=== PATIENT | male | born 1935 | race Caucasian/White ===

== ENCOUNTER 2016-10-23 20:02 | Inpatient (IN) | payer MEDICARE, BC ==
[~2016-10-23] VITALS: Ht 188 cm; Wt 106.7 kg
[~2016-10-23 20:02] MED LIST: ALLERGY RELIEF10 M1 PO; AMOXICILLIN 50500 MG PO; ATENOLOL; BIAXIN 500MG T500 MG PO; COLACE 100100 MG/CAP PO; COUMADIN5 MG PO; COZAAR100 MG PO; DIOVAN HCT 25 M1 TA1 PO; EFFEXOR-XR150 MG PO; FLAGYL500 MG PO; FLOMAX PO; GLUCOPHAGE500 MG/TAB PO; HCTZ 25MG TAB25 MG PO; IBUPROFEN200 M1 PO; LEVAQUIN 750MG750 M1 PO; LEVEMIR100 U/ML SQ; LEVOXYL0.125 MG PO; LORTAB 5/500 501 TAB PO; MEDROL 4MG DOSPA4 MG PO; METFORMIN500 MG PO; MIRALAX PA17 GM/Dose PO; NAPROXEN 3375 MG/TAB PO; NKDA; NORCO 325 MG-51 TAB PO; NORVASC 10MG10 MG PO; NOVLOG SQ; PACERONE200 MG PO; PHENERGAN W/CO120 ML PO; PRINIVIL20 MG PO; SEPTRA DS 8001 TAB PO; TUSS PO; TYLENOL 325MG325 MG PO; ULTRAM 50MG TAB50 MG PO; XARELTO20 MG PO; ZITHROMAX Z PA250 MG PO
[2016-10-23 20:42] LABS: BASO % 0.1 % (0.0-2.0); GRAN # 11.7 (1.4-6.5); HEMATOCRIT 39.6 % (42.0-52.0); HEMOGLOBIN 13.6 g/dl (13.5-18.0); LYMPH # 0.7 (1.2-3.4); LYMPH % 4.9 % (20.0-51.0); MEAN CELL VOLUME 83 fl (80.0-100.0); MEAN CORPUSCULAR HEMOGLOBIN 29 pg (27.0-31.0); MEAN CORPUSCULAR HGB CONC 34 g/dl (33.0-37.0); MEAN PLATELET VOLUME 10.1 fl (7.4-10.4); MONO # 0.7 (0.1-0.6); MONO % 5.5 % (1.7-9.3); PLATELET COUNT 252 K/mm3 (130-400); RED BLOOD COUNT 4.78 M/mm3 (4.20-5.60); REDCELL DISTRIBUTION WIDTH-CV 13.3 % (11.5-14.5); WHITE BLOOD COUNT 13.2 K/mm3 (4.8-10.8)
[2016-10-23 20:46] LABS: INR 1.8 (0.8-3.0); PROTHROMBIN TIME 20.8 SECONDS (9.7-12.8)
[2016-10-23 20:48] LABS: PARTIAL THROMBOPLASTIN TIME 31.8 SECONDS (26.0-37.0)
[2016-10-23 20:50] LABS: ADJUSTED CALCIUM 8.4 mg/dL (8.4-10.2); ALBUMIN 4.1 gm/dL (3.5-5.0); CALCIUM 8.5 mg/dL (8.4-10.2); CREATININE, serum 1.4 mg/dL (0.66-1.25); POTASSIUM 4.2 mmol/L (3.4-5.0)
[2016-10-23 21:01] LABS: TROPONIN-I 0.015 ng/mL (0.000-0.034)
[2016-10-23 21:05] LABS: PH 5 (5-8); SQUAMOUS EPITHELIAL 0-2 /hpf; URINE APPEARANCE Clear; URINE BACTERIA None Seen /hpf; URINE BILIRUBIN Negative (NEGATIVE); URINE BLOOD 1+ (NEGATIVE); URINE COLOR Straw; URINE GLUCOSE 3+ (NEGATIVE); URINE KETONE Negative (NEGATIVE); URINE UROBILINOGEN Negative (NEGATIVE)
[2016-10-23 21:17] LABS: ALLEN TEST YES; ARTERIAL BLD GAS O2 SATURATION 93.4 % (92-100); ARTERIAL BLD GAS TCO2 CT 22.8; ARTERIAL BLOOD GAS BASE EXCESS -1.1 (-2-2); ARTERIAL BLOOD GAS HCO3 21.8 meq/L (22-26); ARTERIAL BLOOD GAS PHT 7.46 C (7.35-7.45); ARTERIAL BLOOD GAS PO2 67.4 mmHg (80-100); ARTERIAL BLOOD GAS PO2T 67.4 (80-100); ARTERIAL BLOOD GAS pH 7.46 (7.35-7.45); ATS? YES; OXYHEMOGLOBIN 92.6 %
[2016-10-23 21:18] LABS: ALLENS TEST RESULT PASS
[2016-10-24] VITALS (667 sets, daily range): BP systolic 115–167; BP diastolic 63–93; PULSE 71–82; TEMP 97.5–98.5; O2SAT 81–100
[2016-10-24 00:40] LABS: MAGNESIUM 2.2 mg/dL (1.6-2.3); PHOSPHOROUS 3.8 mg/dL (2.5-4.5)
[2016-10-24 05:55] LABS: BASO % 0.1 % (0.0-2.0); GRAN # 9.7 (1.4-6.5); GRAN % 85.1 % (42.2-75.2); HEMATOCRIT 40.6 % (42.0-52.0); HEMOGLOBIN 13.6 g/dl (13.5-18.0); MEAN CELL VOLUME 85 fl (80.0-100.0); MEAN CORPUSCULAR HEMOGLOBIN 29 pg (27.0-31.0); MEAN CORPUSCULAR HGB CONC 34 g/dl (33.0-37.0); MEAN PLATELET VOLUME 10.4 fl (7.4-10.4); MONO # 0.6 (0.1-0.6); MONO % 5.4 % (1.7-9.3); PLATELET COUNT 196 K/mm3 (130-400); RED BLOOD COUNT 4.77 M/mm3 (4.20-5.60); REDCELL DISTRIBUTION WIDTH-CV 13.5 % (11.5-14.5); WHITE BLOOD COUNT 11.4 K/mm3 (4.8-10.8)
[2016-10-24 06:21] LABS: CALCIUM 8.1 mg/dL (8.4-10.2); CREATININE, serum 1.18 mg/dL (0.66-1.25); MAGNESIUM 2.1 mg/dL (1.6-2.3); PHOSPHOROUS 3.4 mg/dL (2.5-4.5); POTASSIUM 3.3 mmol/L (3.4-5.0)
[2016-10-24] MEDS ORDERED: GLUCOTROL 5M5 MG/TAB (08:46)
[2016-10-25] VITALS (7 sets, daily range): BP systolic 141–167; BP diastolic 64–825; PULSE 71–82; TEMP 97.5–98.6
[2016-10-25] MEDS ORDERED: OMNICEF 300MG300 MG PO (15:37)
[2016-10-25] MEDS ORDERED: ZITHROMAX Z PA250 MG PO (15:40)
[2016-10-25] MEDS ORDERED: LEVEMIR FLEX100 U/ML SQ (15:41)
[2016-10-25] MEDS ORDERED: IPRATROPIUM BROM3 M1 IH (15:42)
[2016-10-25] MEDS ORDERED: GLUCOTROL 5M5 MG/TAB PO (15:49)
[2016-10-26 02:37] VITALS: BP 151/64; PULSE 67; TEMP 98.2
[2016-10-26 07:20] LABS: HEMATOCRIT 38.3 % (42.0-52.0); HEMOGLOBIN 12.8 g/dl (13.5-18.0); MEAN CELL VOLUME 86 fl (80.0-100.0); MEAN CORPUSCULAR HEMOGLOBIN 29 pg (27.0-31.0); MEAN CORPUSCULAR HGB CONC 33 g/dl (33.0-37.0); MEAN PLATELET VOLUME 10.2 fl (7.4-10.4); PLATELET COUNT 172 K/mm3 (130-400); RED BLOOD COUNT 4.46 M/mm3 (4.20-5.60); REDCELL DISTRIBUTION WIDTH-CV 13.9 % (11.5-14.5); WHITE BLOOD COUNT 5.8 K/mm3 (4.8-10.8)
[2016-10-26 07:35] LABS: CALCIUM 7.8 mg/dL (8.4-10.2); CREATININE, serum 0.87 mg/dL (0.66-1.25); POTASSIUM 3.4 mmol/L (3.4-5.0)
[2016-10-26 07:56] VITALS: BP 151/81; PULSE 74; TEMP 97.9
== END 2016-10-26 11:45 | disposition home or self-care (01) | DRG 193 ==
LOC: COL.ER 20:02 → MEDICAL 22:16 → IMCU 22:16 → MEDICAL 10-24 16:30
PROVIDERS: Emergency Medicine; Internal Medicine
DX: J18.9 Pneumonia, unspecified organism (principal); E11.00 Type 2 diabetes mellitus with hyperosmolarity without nonketotic hyperglycemic-hyperosmolar coma (NKHHC); E87.3 Alkalosis; E87.1 Hypo-osmolality and hyponatremia; I12.9 Hypertensive chronic kidney disease with stage 1 through stage 4 chronic kidney disease, or unspecified chronic kidney disease; E11.22 Type 2 diabetes mellitus with diabetic chronic kidney disease; E11.65 Type 2 diabetes mellitus with hyperglycemia; N18.2 Chronic kidney disease, stage 2 (mild); I48.91 Unspecified atrial fibrillation; N40.1 Benign prostatic hyperplasia with lower urinary tract symptoms; N39.498 Other specified urinary incontinence
CPT/HCPCS: 99222-AI; 99233-AI; J0456; J0696; J1815; J7030; J7050

== ENCOUNTER 2017-05-28 10:06 | Inpatient (IN) | payer MEDICARE, BC ==
[~2017-05-28] VITALS: Ht 188 cm; Wt 110.5 kg
[~2017-05-28 10:06] MED LIST changes: +GLUCOTROL 5M5 MG/TAB; +GLUCOTROL 5M5 MG/TAB PO; +IPRATROPIUM BROM3 M1 IH; +LEVEMIR FLEX100 U/ML SQ; +OMNICEF 300MG300 MG PO
[2017-05-28 10:50] LABS: BASO % 0.5 % (0.0-2.0); EOS # 0.1 (0.0-0.7); EOS % 1.7 % (0-4.0); HEMATOCRIT 40.5 % (42.0-52.0); HEMOGLOBIN 13.7 g/dl (13.5-18.0); LYMPH # 0.8 (1.2-3.4); LYMPH % 10.7 % (20.0-51.0); MEAN CELL VOLUME 87 fl (80.0-100.0); MEAN CORPUSCULAR HEMOGLOBIN 30 pg (27.0-31.0); MEAN CORPUSCULAR HGB CONC 34 g/dl (33.0-37.0); MEAN PLATELET VOLUME 9.7 fl (7.4-10.4); MONO # 0.8 (0.1-0.6); MONO % 10.7 % (1.7-9.3); PLATELET COUNT 239 K/mm3 (130-400); RED BLOOD COUNT 4.65 M/mm3 (4.20-5.60); REDCELL DISTRIBUTION WIDTH-CV 13.5 % (11.5-14.5)
[2017-05-28] MEDS ORDERED: CEFTIN500 MG PO (10:55)
[2017-05-28] MEDS ORDERED: PROMETHAZINE V473 M2 PO (10:57)
[2017-05-28] MEDS ORDERED: TESSALON P100 MG/CAP PO (10:57)
[2017-05-28 10:58] LABS: ALBUMIN 3.7 gm/dL (3.5-5.0); CALCIUM 8.3 mg/dL (8.4-10.2); CREATININE, serum 1.33 mg/dL (0.66-1.25); POTASSIUM 3.5 mmol/L (3.4-5.0)
[2017-05-28 11:04] LABS: INFLUENZA A NEGATIVE; INFLUENZA B NEGATIVE
[2017-05-28 11:11] LABS: C-REACTIVE PROTEIN 14.5 mg/dL (0.0-0.9)
[2017-05-28 12:31] VITALS: BP 106/72; PULSE 102; TEMP 97.6
[2017-05-28 15:39] VITALS: BP 133/81; PULSE 93; TEMP 98.5
[2017-05-28 19:27] VITALS: BP 123/90; PULSE 114; TEMP 97.6
[2017-05-29 00:11] VITALS: BP 130/84; PULSE 109; TEMP 97.5
[2017-05-29 03:23] VITALS: BP 151/93; PULSE 96; TEMP 97.3
[2017-05-29 07:22] LABS: HEMATOCRIT 38.6 % (42.0-52.0); MEAN CELL VOLUME 88 fl (80.0-100.0); MEAN CORPUSCULAR HEMOGLOBIN 30 pg (27.0-31.0); MEAN CORPUSCULAR HGB CONC 34 g/dl (33.0-37.0); PLATELET COUNT 225 K/mm3 (130-400); RED BLOOD COUNT 4.41 M/mm3 (4.20-5.60); REDCELL DISTRIBUTION WIDTH-CV 13.2 % (11.5-14.5)
[2017-05-29 07:32] LABS: CALCIUM 8.4 mg/dL (8.4-10.2); CREATININE, serum 1.22 mg/dL (0.66-1.25); POTASSIUM 3.4 mmol/L (3.4-5.0)
[2017-05-29 08:11] VITALS: BP 153/104; PULSE 116; TEMP 98.3
[2017-05-29 08:30] LABS: BAND 8 % (0-10); LYMPHOCYTE 2 % (20.0-51.0); NEUTROPHILS 89 % (42.0-75.2); PLATELET ESTIMATE NORMAL (NORMAL)
[2017-05-29 11:42] VITALS: BP 138/81; PULSE 106; TEMP 97.5
[2017-05-29 16:17] VITALS: BP 143/90; PULSE 101; TEMP 98.5
[2017-05-29 19:13] VITALS: BP 127/87; PULSE 87; TEMP 98.5
[2017-05-30 00:32] VITALS: BP 143/89; PULSE 99; TEMP 98
[2017-05-30 03:44] VITALS: BP 141/90; PULSE 115; TEMP 98.2
[2017-05-30 08:33] VITALS: BP 145/97; PULSE 101; TEMP 97.8
[2017-05-30] MEDS ORDERED: LOPRESSOR 550 MG/TAB PO (09:16)
[2017-05-30] MEDS ORDERED: LEVAQUIN 5500 MG/TA1 PO (09:17)
[2017-05-30 11:39] VITALS: BP 156/72; PULSE 81; TEMP 97.7
== END 2017-05-30 15:55 | disposition home or self-care (01) | DRG 195 ==
LOC: COL.ER 10:06 → MEDICAL 11:29
PROVIDERS: Internal Medicine; Physician Assistant
DX: J18.9 Pneumonia, unspecified organism (principal); J20.9 Acute bronchitis, unspecified; I12.9 Hypertensive chronic kidney disease with stage 1 through stage 4 chronic kidney disease, or unspecified chronic kidney disease; E11.22 Type 2 diabetes mellitus with diabetic chronic kidney disease; N18.9 Chronic kidney disease, unspecified; I48.2 Chronic atrial fibrillation
CPT/HCPCS: 99222-AI; 99232-AI; 99239; J0456; J0696; J1815; J2920; J7030; J7050

== ENCOUNTER 2018-09-28 01:50 | Inpatient (IN) | payer MEDICARE, BC ==
[2018-09-28] VITALS (52 sets, daily range): BP systolic 128–174; BP diastolic 59–104; PULSE 57–83; TEMP 97.6–98.5; O2SAT 94–100
[~2018-09-28] VITALS: Ht 188 cm; Wt 112.9 kg
[~2018-09-28 01:50] MED LIST changes: +CEFTIN500 MG PO; +LEVAQUIN 5500 MG/TA1 PO; +LOPRESSOR 550 MG/TAB PO; +PROMETHAZINE V473 M2 PO; +TESSALON P100 MG/CAP PO
[2018-09-28 02:07] LABS: BASO # 0.1 (0.0-0.2); BASO % 0.9 % (0.0-2.0); EOS # 0.4 (0.0-0.7); GRAN # 6.2 (1.4-6.5); GRAN % 68.5 % (42.2-75.2); HEMATOCRIT 47.2 % (42.0-52.0); HEMOGLOBIN 15.9 g/dl (13.5-18.0); LYMPH # 1.8 (1.2-3.4); LYMPH % 19.5 % (20.0-51.0); MEAN CELL VOLUME 90 fl (80.0-100.0); MEAN CORPUSCULAR HEMOGLOBIN 30 pg (27.0-31.0); MEAN CORPUSCULAR HGB CONC 34 g/dl (33.0-37.0); MEAN PLATELET VOLUME 9.8 fl (7.4-10.4); MONO # 0.6 (0.1-0.6); MONO % 6.9 % (1.7-9.3); PLATELET COUNT 232 K/mm3 (130-400); RED BLOOD COUNT 5.26 M/mm3 (4.20-5.60); REDCELL DISTRIBUTION WIDTH-CV 12.9 % (11.5-14.5)
[2018-09-28 02:12] LABS: PROTHROMBIN TIME 10.8 SECONDS (9.7-12.8)
[2018-09-28 02:14] LABS: PARTIAL THROMBOPLASTIN TIME 31.6 SECONDS (26.0-37.0)
[2018-09-28] MEDS ORDERED: GLUCOTROL10 MG PO (02:28)
[2018-09-28] MEDS ORDERED: CELEBREX 200MG200 MG PO (02:30)
[2018-09-28 02:42] LABS: ALBUMIN 4.1 gm/dL (3.5-5.0); BILIRUBIN,TOTAL 0.5 mg/dL (0.0-1.0); CREATININE, serum 1.39 (0.66-1.25); POTASSIUM 4.4 mmol/L (3.4-5.0); TOTAL PROTEIN 7.6 gm/dL (6.4-8.2)
[2018-09-28 03:52] LABS: TROPONIN-I 0.125 ng/mL (0.000-0.035)
[2018-09-28 05:18] LABS: MAGNESIUM 1.9 mg/dL (1.6-2.3)
[2018-09-28] MEDS ORDERED: GLUCOPHAGE XR500 M1 PO (05:26)
--- NOTE | 2018-09-28 05:30 | NUR ---
Pt arrived to room 351, transferred per stretcher by ED. Pt awake, a&o, cooperative c cares. Oriented to room, unit policies et current POC. Questions invited et answered, pt verbalizes understanding. Denies needs at this time. Heparin gtt infusing per orders. Call light in reach, will monitor.
[2018-09-28 05:46] LABS: THYROID STIMULATING HORMONE 8.78 uIU/mL (0.465-4.680)
[2018-09-28 06:03] LABS: CHOLESTEROL RISK RATIO 4.3
[2018-09-28 06:30] LABS: TROPONIN-I 3 HR POST INITIAL 0.345 ng/mL (0.000-0.034)
--- NOTE | 2018-09-28 07:48 | NUR ---
Assessment completed, alert/oriented, vital signs stable, denies any further chest pAin or discomfort, heart RRR/distal pulses are palpable, lungS CTA/ denies any SOA or resp.difficulty, 0545 troponin was 0.345/ notified, patient is on Heparin gtt per protocol, we have kept him NPO, he is resting quietly an denies needs, will continue to monitor
--- NOTE | 2018-09-28 10:08 | NUR ---
JEANE met with the patient to discuss discharge plan. The patient lives alone in [place]. He states that his son, Jose, lives in town. He reports independence with ADLs and has a cane. The patient reports that he has not been able to keep his medications organized and would be interested in getting home health services set back up. JEANE presented the patient with Medicare.gov's list of home health services that serve [place]. The patient reports he had [facility] in the past and chose them again. JEANE contacted and provided Jean from [facility] with the referral. Jean reports that they can accept the patient back for services. SW to continue to follow.
--- NOTE | 2018-09-28 11:58 | NUR ---
HepXa level was 1.86, per protocol will hold gtt for 2 hours, recheck PTT and HepXa level at 1300, once HepXa level is below 1.0/ restart gtt and decreased 300 units/hr from previous rate (rate once we restart will be 17 ml/hr)
[2018-09-28 13:52] LABS: PARTIAL THROMBOPLASTIN TIME 88.4 SECONDS (26.0-37.0)
--- NOTE | 2018-09-28 14:05 | NUR ---
HepXa was 1.0, restarting gtt at this time @ 17 ml/hr, next Hepxa at 2000
--- NOTE | 2018-09-28 14:46 | NUR ---
Initial visit; Patient and family thanked Lehr Operator for looking in in him and offering encouragement and God's blessings.
--- NOTE | 2018-09-28 19:20 | NUR ---
PT WENT DOWN TO SHIFT COORDINATOR.
--- NOTE | 2018-09-28 19:47 | NUR ---
SEE MERGE FOR ALL MEDICATION ADMINISTRATION TIMES, RASS ASSESSMENT DURING AND POST PROCEDURE
--- NOTE | 2018-09-28 21:40 | NUR ---
RECEIVED REPORT FROM VOCATIONAL NURSE RN.
--- NOTE | 2018-09-28 21:50 | NUR ---
PATIENT ARRIVED ON UNIT AT THIS TIME VIA HOSPITAL BED.
--- NOTE | 2018-09-28 22:35 | NUR ---
PATIENTS DRESSING HAD A LITTLE MORE DRAINAGE WHEN CHECKED. KEPT THE FEMSTOP INFLATED AT 65.
--- NOTE | 2018-09-28 23:03 | NUR ---
CALLED DR. TEJEDA TO CLARIFY ORDERS. TOLD ME TO DC THE HEPARIN DRIP AND JUST LET THE NITRO INFUSE AT 2O MCG/MIN OVER NIGHT TO HOPEFULLY HELP DECREASE PATIENTS BLOOD PRESSURE.
[2018-09-29] VITALS (333 sets, daily range): BP systolic 100–160; BP diastolic 60–92; PULSE 56–77; TEMP 97.6–98.5; O2SAT 83–100
--- NOTE | 2018-09-29 01:30 | NUR ---
PATIENT HAD INCREASED BLEEDING SO INFLATED FEMSTOP BACK TO 65.
--- NOTE | 2018-09-29 02:48 | NUR ---
INCREASED FEMSTOP PRESSURE DUE TO BLEEDING. WILL CONTINUE TO MONITOR.
--- NOTE | 2018-09-29 04:50 | NUR ---
bleeding has seemed to stop. decreased the fem stop pressure to 30. will continue to monitor patient.
[2018-09-29 05:51] LABS: BASO # 0.1 (0.0-0.2); BASO % 0.7 % (0.0-2.0); EOS # 0.1 (0.0-0.7); EOS % 1.6 % (0-4.0); GRAN % 79.3 % (42.2-75.2); HEMATOCRIT 38.4 % (42.0-52.0); LYMPH # 0.9 (1.2-3.4); MEAN CELL VOLUME 90 fl (80.0-100.0); MEAN CORPUSCULAR HEMOGLOBIN 31 pg (27.0-31.0); MEAN CORPUSCULAR HGB CONC 34 g/dl (33.0-37.0); MEAN PLATELET VOLUME 9.9 fl (7.4-10.4); MONO # 0.5 (0.1-0.6); PLATELET COUNT 184 K/mm3 (130-400); RED BLOOD COUNT 4.26 M/mm3 (4.20-5.60)
[2018-09-29 06:03] LABS: CALCIUM 8.1 mg/dL (8.4-10.2); CREATININE, serum 1.11 (0.66-1.25); POTASSIUM 3.9 mmol/L (3.4-5.0)
--- NOTE | 2018-09-29 07:15 | NUR ---
Order to discontinue Nitroglycerine this AM noted. Will start to wean nitroglycerine down now.
--- NOTE | 2018-09-29 07:15 | NUR ---
Bedside report received from CATIA Ackerman. Patient resting in bed with no complaints. Nitro gtt infusing. Groin site assessed. dressing is marked. otherwise clean and dry. groin is soft with no s/s hematoma.
--- NOTE | 2018-09-29 07:44 | NUR ---
gave report to darshana rutherford and ramy, nursing home assistant.
--- NOTE | 2018-09-29 09:50 | NUR ---
Initial visit; Prabhjot, his son and grandson thanked Metal Casting Trades Worker for offering prayer and God's blessings this morning. Prabhjot is in good spirits and hopes to be discharged soon.
--- NOTE | 2018-09-29 10:00 | NUR ---
Nitroglycerine is off at this time.
--- NOTE | 2018-09-29 10:39 | NUR ---
SW attended clinical rounds. Patient is interested in obtaining home health services through [facility] after he is discharged. When patient is discharge, SW will fax discharge orders to [facility].
--- NOTE | 2018-09-29 12:04 | NUR ---
PATIENT RESTS IN CHAIR AND COMPLAINS OF NO CHEST PAIN.
--- NOTE | 2018-09-29 14:02 | NUR ---
Report called to Medical floor RN by Andie Torres RN Student.
--- NOTE | 2018-09-29 14:30 | NUR ---
Patient arrived up to the floor from ICu at this time, he is alert/oriented, denies any pain or discomfort, right groin access site was observed with the ICU nurse and appears unchanged/ no signs of active bleeding, patient denies other needs at this time
--- NOTE | 2018-09-29 17:25 | NUR ---
right groin site looks good, no active bleeding noted, vital signs stable
--- NOTE | 2018-09-29 21:23 | NUR ---
PT IN BED WITH HOB ELEVATED TO 45 DEGREE ANGLE. PT DENIES PAIN AND DISCOMFORT. PT'S RIGHT GROIN AREA HAS DRSG INTACT WITH SOME DRAINAGE BUT HAS BEEN MARKED FROM PREVIOUS SHIFT AND HAS NOT EXCEED BY MUCH, VERY LITTLE. PT A/O X4, PT HAS NO NEEDS AT THIS TIME, HAS BED ALARM ON AND CALL LIGHT WITHIN REACH.
--- NOTE | 2018-09-30 00:17 | NUR ---
CALLED PATTI CHAPA IN REFERENCE TO PT ADVISED THAT PT SEEMED A LITTLE WINDED WHEN AWAKEN FROM SLEEP, AND PT ADVISED THAT HE HAS SLEEP APNEA AND SLEEPS WITH A CPAP AT HOME. RECEIVED ORDERS FOR CPAP/BIPAP FROM PATTI CHAPA. ALSO, CALLED RT IN REFERENCE TO CPAP.
--- NOTE | 2018-09-30 00:35 | NUR ---
PT'S RIGHT GROIN SITE HAS NO CHANGE FROM LAST ASSESSMENT WITH NO HEMATOMA AND NO FURTHER DRAINAGE ON DRSG. PT DENIES PAIN OR DISCOMFORT. NO NEEDS AT THIS TIME, CALL LIGHT WITHIN REACH.
[2018-09-30 04:17] VITALS: BP 168/89; PULSE 76; TEMP 97.7
--- NOTE | 2018-09-30 04:55 | NUR ---
UNEVENTFUL NIGHT. PT SLEEPING WITH CPAP ON AND RESP EVEN AND UNLABORED. BED ALARM ON AND CALL LIGHT WITHIN REACH. PT DID WAKE UP TO USE THE URINAL AND THEN WENT BACK TO SLEEP.
--- NOTE | 2018-09-30 05:17 | NUR ---
PT HAD AN INCONTINENT EPISODE IN BED AND SHEETS WERE WET, ALSO, THERE WAS A SMALL AREA OF FRESH BLOOD ON THE TOP SHEET. RIGHT GROIN AREA EXAMINED AND NO CHANGE OR ACTIVE BLEEDING AND NO HEMATOMA. SHANTEL-CARE PREFORMED AND NO BLOOD FOUND. CHECKED ARMS AND LEGS AND PT HAD A SMALL SCAB ON LEFT FOREARM BUT WAS NOT ACTIVELY BLEEDING. WILL CONTINUE TO MONITOR. PT RESTING IN BED WITH CPAP ON, BED ALARM ON, AND CALL LIGHT WITHIN REACH.
[2018-09-30 07:12] LABS: BASO # 0.1 (0.0-0.2); BASO % 1.1 % (0.0-2.0); EOS # 0.3 (0.0-0.7); EOS % 5.1 % (0-4.0); GRAN # 4.5 (1.4-6.5); GRAN % 67.6 % (42.2-75.2); HEMATOCRIT 40.4 % (42.0-52.0); HEMOGLOBIN 13.6 g/dl (13.5-18.0); LYMPH # 1.1 (1.2-3.4); LYMPH % 16.8 % (20.0-51.0); MEAN CELL VOLUME 89 fl (80.0-100.0); MEAN CORPUSCULAR HEMOGLOBIN 30 pg (27.0-31.0); MEAN CORPUSCULAR HGB CONC 34 g/dl (33.0-37.0); MONO # 0.6 (0.1-0.6); MONO % 8.9 % (1.7-9.3); PLATELET COUNT 189 K/mm3 (130-400); RED BLOOD COUNT 4.53 M/mm3 (4.20-5.60); REDCELL DISTRIBUTION WIDTH-CV 12.9 % (11.5-14.5)
[2018-09-30 07:25] LABS: CALCIUM 8.3 mg/dL (8.4-10.2); CREATININE, serum 1.23 (0.66-1.25); POTASSIUM 3.8 mmol/L (3.4-5.0)
[2018-09-30 07:55] VITALS: BP 179/92; PULSE 90; TEMP 974
[2018-09-30 08:24] VITALS: BP 138/81; PULSE 76
--- NOTE | 2018-09-30 09:00 | NUR ---
Assessment completed, alert/oriented, vital signs stable/ HTN and will reasses BP after morning medications are on board, denies any chest pain or discomfort, heart RRR/distal pulses are palpalbe, lungs CTA/ no resp.difficulty, right groin/ femoral access site soft and non-tender with no signs of hematoma or active bleeding, working with PT/OT, plans for discharge home later today
--- NOTE | 2018-09-30 10:49 | NUR ---
Follow-up visit; Prabhjot and his son thanked for stopping and requested prayer again today. Cheerleading Coach offered God's blessings as well.
[2018-09-30] MEDS ORDERED: PLAVIX 75MG TAB75 MG PO (11:20)
[2018-09-30] MEDS ORDERED: COREG 6.256.25 MG/TA PO (11:24)
[2018-09-30 12:00] VITALS: BP 162/88; PULSE 68; TEMP 97.8
[2018-09-30] MEDS ORDERED: NORVASC 5MG5 MG/TAB PO (13:29)
--- NOTE | 2018-09-30 13:42 | NUR ---
The patient is to discharge today back home, 09/30. SW student faxed discharge orders to [facility].
--- NOTE | 2018-09-30 16:04 | NUR ---
Discharge orders reviewed with the patient and his son, instructed to follow up with PCP and Cardiology as scheduled, instructed to take meds as prescribe, scripts for COreg/NOrvasc/Plavix sent to the pharmacy for him, instructed to STOP Celybrex, IV removed from left hand, right groin site dressing can be removed today and patient can shower today, home health set up, denies other needs, MANAGER MARKETING escorted him out the door, and leaving with his son
== END 2018-09-30 16:21 | disposition home health service (06) | DRG 246 ==
LOC: COL.ER 01:50 → ICU 04:19 → MEDICAL 04:19 → ICU 22:36 → IMCU 09-29 06:23 → MEDICAL 09-29 14:34
PROVIDERS: Emergency Medicine; Family Medicine; Nurse Practitioner Family; Physician Assistant; ADMIT Hospitalist
PROC: 027337Z Dilation of Coronary Artery, Four or More Arteries with Four or More Drug-eluting Intraluminal Devices, Percutaneous Approach (ICD-10-PCS; principal; 2018-09-28)
PROC: 0270346 Dilation of Coronary Artery, One Artery, Bifurcation, with Drug-eluting Intraluminal Device, Percutaneous Approach (ICD-10-PCS; 2018-09-28)
PROC: B2111ZZ Fluoroscopy of Multiple Coronary Arteries using Low Osmolar Contrast (ICD-10-PCS; 2018-09-28)
DX: I21.4 Non-ST elevation (NSTEMI) myocardial infarction (principal); I12.9 Hypertensive chronic kidney disease with stage 1 through stage 4 chronic kidney disease, or unspecified chronic kidney disease; E11.22 Type 2 diabetes mellitus with diabetic chronic kidney disease; I25.10 Atherosclerotic heart disease of native coronary artery without angina pectoris; E11.65 Type 2 diabetes mellitus with hyperglycemia; N18.9 Chronic kidney disease, unspecified; I48.0 Paroxysmal atrial fibrillation; G47.33 Obstructive sleep apnea (adult) (pediatric); E03.9 Hypothyroidism, unspecified; N40.0 Benign prostatic hyperplasia without lower urinary tract symptoms; Z79.01 Long term (current) use of anticoagulants
CPT/HCPCS: 99222-AI; 99231-AI; 99239; C1725; C1760; C1769; C1874; C1887; C1894; C9600; C9601; J0583; J1644; J1815; J2250; J2405; J3010; J7030; J7040; Q9967

== ENCOUNTER 2018-12-19 13:40 | Emergency (ER) | payer MEDICARE, BC ==
[~2018-12-19] VITALS: Ht 188 cm; Wt 104.5 kg
[~2018-12-19 13:40] MED LIST changes: +CELEBREX 200MG200 MG PO; +COREG 6.256.25 MG/TA PO; +GLUCOPHAGE XR500 M1 PO; +GLUCOTROL10 MG PO; +NORVASC 5MG5 MG/TAB PO; +PLAVIX 75MG TAB75 MG PO
[2018-12-19 15:13] VITALS: BP 133/81; PULSE 65; TEMP 96.7
== END 2018-12-19 15:13 | disposition home or self-care (01) ==
LOC: COL.ER 13:40
DX: S01.511A Laceration without foreign body of lip, initial encounter (principal); I48.91 Unspecified atrial fibrillation; E11.22 Type 2 diabetes mellitus with diabetic chronic kidney disease; I12.9 Hypertensive chronic kidney disease with stage 1 through stage 4 chronic kidney disease, or unspecified chronic kidney disease; N18.9 Chronic kidney disease, unspecified; G47.33 Obstructive sleep apnea (adult) (pediatric); Z79.02 Long term (current) use of antithrombotics/antiplatelets; Z79.84 Long term (current) use of oral hypoglycemic drugs; X58.XXXA Exposure to other specified factors, initial encounter

== ENCOUNTER 2019-02-13 14:29 | Outpatient (RCR) | payer MEDICARE, BC ==
[2019-02-14] MEDS ORDERED: BRILINTA90 MG PO (00:06)
[2019-02-14] MEDS ORDERED: LIPITOR 80MG80 MG PO (00:10)
[2019-02-14] MEDS ORDERED: LOPRESSOR 225 MG/TAB PO (00:11)
[2019-02-20] MEDS ORDERED: CORDARONE200 MG/TAB PO (11:58)
[2019-02-20] MEDS ORDERED: COZAAR 50MG50 MG/TAB PO (11:59)
[2019-02-20] MEDS ORDERED: ASPIRIN 81M81 MG/TA2 PO (12:00)
[2019-02-20] MEDS ORDERED: TYLENOL 325MG325 MG PO (12:01)
[2019-02-20] MEDS ORDERED: NORCO 325 MG-51 TAB PO (12:01)
[2019-03-04] MEDS ORDERED: ANUSOL-HC SUPPO25 MG RC (08:44)
[2019-03-04] MEDS ORDERED: MIRTAZAPINE7.5 MG PO (08:44)
[2019-03-04] MEDS ORDERED: NOVLOG SQ (08:47)
[2019-04-18] MEDS ORDERED: LEVOXYL0.025 MG (21:02)
[2019-04-18] MEDS ORDERED: DIOVAN HCT 12.51 TA2 (21:04)
[2019-04-18] MEDS ORDERED: EFFE25TA (21:06)
[2019-04-19] MEDS ORDERED: PACERONE200 MG PO (02:53)
[2019-04-19] MEDS ORDERED: SYNTHROID0.125 MG/T PO (02:55)
[2019-04-19] MEDS ORDERED: NITROSTAT0.4 MG/TAB SL (02:58)
[2019-04-19] MEDS ORDERED: MIRALAX PA17 GM/Dose PO (02:59)
[2019-04-19] MEDS ORDERED: DIOVAN HCT 25 M1 TA1 PO (02:59)
[2019-04-19] MEDS ORDERED: EFFEXOR XR75 MG/CAP PO (03:00)
[2019-04-24] MEDS ORDERED: NORCO 325 MG-7.1 TAB PO (09:09)
[2019-04-24] MEDS ORDERED: SENNA-S 50 MG-81 TAB PO (09:09)
== END 2019-05-07 | disposition home or self-care (01) ==
LOC: COL.CR
DX: Z48.812 Encounter for surgical aftercare following surgery on the circulatory system (principal); Z95.5 Presence of coronary angioplasty implant and graft; I25.2 Old myocardial infarction

== ENCOUNTER 2019-02-13 19:43 | Inpatient (IN) | payer MEDICARE, BC ==
[~2019-02-13] VITALS: Ht 188 cm; Wt 110.6 kg
[2019-02-13 20:39] LABS: BASO # 0.1 (0.0-0.2); BASO % 1.2 % (0.0-2.0); EOS # 0.5 (0.0-0.7); EOS % 6.8 % (0-4.0); GRAN # 5.1 (1.4-6.5); GRAN % 65.2 % (42.2-75.2); HEMOGLOBIN 10.6 g/dl (13.5-18.0); LYMPH # 1.4 (1.2-3.4); LYMPH % 17.4 % (20.0-51.0); MEAN CELL VOLUME 92 fl (80.0-100.0); MEAN CORPUSCULAR HEMOGLOBIN 30 pg (27.0-31.0); MEAN CORPUSCULAR HGB CONC 32 g/dl (33.0-37.0); MEAN PLATELET VOLUME 9.6 fl (7.4-10.4); MONO # 0.7 (0.1-0.6); PLATELET COUNT 249 K/mm3 (130-400); RED BLOOD COUNT 3.56 M/mm3 (4.20-5.60); REDCELL DISTRIBUTION WIDTH-CV 12.9 % (11.5-14.5)
[2019-02-13 20:46] LABS: ALBUMIN 3.9 gm/dL (3.5-5.0); BILIRUBIN,TOTAL 0.6 mg/dL (0.0-1.0); CALCIUM 8.5 mg/dL (8.4-10.2); CREATININE, serum 1.34 (0.66-1.25); HEMATOCRIT 32.7 % (42.0-52.0); POTASSIUM 4.6 mmol/L (3.4-5.0); TOTAL PROTEIN 7.1 gm/dL (6.4-8.2); URIC ACID 8.2 mg/dL (3.5-8.5)
[2019-02-13 20:47] LABS: INR 1.6 (0.8-3.0); PROTHROMBIN TIME 19.4 SECONDS (9.7-12.8)
--- NOTE | 2019-02-13 23:15 | NUR ---
Pt arrived to room 352, transferred per stretcher by ED staff. Pt awake, a&o, cooperative c cares. Son at bedside. Pt/son oriented to room, unit policies et current POC. Questions invited et answered, both verbalize understanding. Pt continued c/o pain to L hand. L hand noted to have significant ecchymosis et edema, will contact provider for pain management. INT patent. Pt denies any other c/o or needs at this time. Call light in reach, bed alarm on. Will continue c admit process.
[2019-02-13 23:37] VITALS: BP 145/75; PULSE 64; TEMP 97.5
[2019-02-14] VITALS (7 sets, daily range): BP systolic 90–151; BP diastolic 51–87; PULSE 52–73; TEMP 97.2–98.8
[2019-02-14] MEDS ORDERED: BRILINTA90 MG PO (00:06)
[2019-02-14] MEDS ORDERED: LIPITOR 80MG80 MG PO (00:10)
[2019-02-14] MEDS ORDERED: LOPRESSOR 225 MG/TAB PO (00:11)
[2019-02-14 07:19] LABS: BASO % 0.3 % (0.0-2.0); EOS % 0.1 % (0-4.0); GRAN # 8.6 (1.4-6.5); HEMOGLOBIN 11.7 g/dl (13.5-18.0); LYMPH # 0.8 (1.2-3.4); LYMPH % 8.2 % (20.0-51.0); MEAN CELL VOLUME 91 fl (80.0-100.0); MEAN CORPUSCULAR HEMOGLOBIN 29 pg (27.0-31.0); MEAN CORPUSCULAR HGB CONC 32 g/dl (33.0-37.0); MEAN PLATELET VOLUME 9.5 fl (7.4-10.4); MONO # 0.1 (0.1-0.6); PLATELET COUNT 281 K/mm3 (130-400); RED BLOOD COUNT 4.01 M/mm3 (4.20-5.60); REDCELL DISTRIBUTION WIDTH-CV 12.7 % (11.5-14.5)
[2019-02-14 07:27] LABS: HEMATOCRIT 36.5 % (42.0-52.0)
[2019-02-14 07:31] LABS: CALCIUM 8.8 mg/dL (8.4-10.2); CREATININE, serum 1.22 (0.66-1.25); POTASSIUM 4.3 mmol/L (3.4-5.0)
--- NOTE | 2019-02-14 10:36 | NUR ---
Assessment completed, alert/oriented, vital signs stable, reporting 8-9 / 10 pain and I gave Jesup, left hand/wrist is very swollen and bruised/ large hematoma noted, his pulses are good and capillary refill is <3 seconds, heart RRR/ distal pulses are palpable, lungs CTA/ no resp.difficulty noted, he is sitting up eating breakfast at this time, son has arrived from and waiting to see the Physician/ I have notified the hospitalist
--- NOTE | 2019-02-14 11:43 | NUR ---
SW met with the patient and the patient's son, Prabhjot Santamaria (ph#[phone]), to discuss discharge plan. The patient lives alone in [place]. Prabhjot Santamaria states that he lives in [place], but that he got a job in [place] and is moving here soon. He states that his brother, Jose Avelar (ph#[phone]), also lives in [place] and checks in on the patient every evening. The patient reports independence with ADLs and has a cane and two walkers. The patient's PCP is Dr. Luis Grimes and he receives his medications at the [facility]. He reports no difficulties obtaining his meds. The patient does not have advanced directives in EMR, but his son states that he does have them completed and at home and he states that the patient's PCP's office should have a copy. SW contacted the patient's PCP's office and they report they do not have a copy. SW to inform the patient and his son. Prabhjot Santamaria reports that the patient's DPOA-HC is him or his brother, Jose. The patient plans to return back home and continue cardiac rehab upon discharge. Prabhjot Santamaria reports that he plans to stay with the patient for a few days upon discharge. OT to work with the patient. SW to continue to follow.
--- NOTE | 2019-02-14 20:30 | NUR ---
Initial shift assessment done- pt states maybe a pain pill before bed tonight, states left hand pain 5/10,,hand elevated on 2 pillow- fresh ice given for hand-- left hand remains purplish with swelling- VSS
--- NOTE | 2019-02-14 22:00 | NUR ---
Talked with both yolanda ch- one on the phone- one is in the room, pt sblood sugar is high 392- they are very concerned, has bot had diabetic oral meds today as they were put on hold last night- informed them that I will call Doctor jing to see if they can be reinstated in the morning-
--- NOTE | 2019-02-15 01:45 | NUR ---
Did talk to Jaimie PATEL about restarting pts home diabetes oral meds- also about his high sugars today-- states she will defer to attending Dr on days today- but orders now to check blood suagr and cover SS high dose-every4 hrs- first dose now-- blood sugar was 285, 8 units novolog given-
[2019-02-15 03:05] VITALS: BP 120/60; PULSE 53
--- NOTE | 2019-02-15 05:27 | NUR ---
Escobar been sleeping well for the past 4-5 hours- did void per urinal, repositioned in bed with 2 assists, new ice for left hand- elevated on pillows, good pulse to left wrist
[2019-02-15 06:55] LABS: BASO % 0.2 % (0.0-2.0); EOS % 0.1 % (0-4.0); GRAN # 8.7 (1.4-6.5); GRAN % 82.8 % (42.2-75.2); LYMPH # 0.9 (1.2-3.4); LYMPH % 8.4 % (20.0-51.0); MEAN CELL VOLUME 92 fl (80.0-100.0); MEAN CORPUSCULAR HGB CONC 32 g/dl (33.0-37.0); MEAN PLATELET VOLUME 9.7 fl (7.4-10.4); MONO # 0.9 (0.1-0.6); MONO % 8.1 % (1.7-9.3); PLATELET COUNT 249 K/mm3 (130-400); RED BLOOD COUNT 3.25 M/mm3 (4.20-5.60); REDCELL DISTRIBUTION WIDTH-CV 12.9 % (11.5-14.5)
[2019-02-15 06:56] LABS: HEMOGLOBIN 9.6 g/dl (13.5-18.0); MEAN CORPUSCULAR HEMOGLOBIN 30 pg (27.0-31.0)
[2019-02-15 07:06] LABS: CALCIUM 8.5 mg/dL (8.4-10.2); CREATININE, serum 2.76 (0.66-1.25); POTASSIUM 4.6 mmol/L (3.4-5.0)
[2019-02-15 08:07] VITALS: BP 150/76; PULSE 61; TEMP 97.6
--- NOTE | 2019-02-15 12:15 | NUR ---
Assessment completed, alert/oriented, vital signs stable, reports mil-moderate pain in left hand, swelling and inflammation looks about the same today/ ICE and elevated as much as possible, dital pulses are palpable, heart RRR, lungs CTA/ no resp.difficulty noted, patient creatnine was bumped today and we started on IVF , restarted Glucotrol / metformin still on hold, waiting on Ortho to see him and give any addtional recs, has updated the son Jose over the phone, Social work will call the other son Prabhjot and discuss discharge planning with him
[2019-02-15 13:35] VITALS: BP 112/59; PULSE 59; TEMP 97.4
--- NOTE | 2019-02-15 16:21 | NUR ---
JEANE attended clinical rounds. The patient's kidney functioning worsened this morning. The patient is to start on IV fluids today. JEANE then contacted the patient's son, Prabhjot Santamaria, to update and to discuss PT/OT's recommendation of home with 24/7 supervision and outpatient OT vs home health. The patient's son expressed his concerns with the patient returning back home and stated that him and his brother would be interested IPR for the patient. Prabhjot Santamaria. requested that JEANE meet with his brother when he gets to the hospital to update. JEANE consulted IPR Director, Smiley. Smiley informed JEANE that they are full at this time. JEANE then met with the patient's son Jose. JEANE informed Jose on how the patient was observation and was made inpatient today. JEANE updated Jose on the status of IPR. JEANE then discussed his options of inpatient rehab facilities outside of [place], private paying for SNF (if he does not need to be here three midnights), and 24/7 supervision with home health. The patient's son verbalized understanding and expressed his frustrations. Ortho was consulted and plan for surgery today, 02/15. SW to follow up with the patient's son and will continue to follow to ensure a safe discharge.
--- NOTE | 2019-02-15 17:03 | NUR ---
Patient is going down to OR for left hand/wrist hematoma evacuation and possible muscle compartment release, plan of care discussed with patient and his family/ consent obtained
[2019-02-15 19:51] VITALS: BP 133/64; PULSE 62; TEMP 97.6
[2019-02-15 23:27] VITALS: BP 122/56; PULSE 61; TEMP 97.6
[2019-02-16 03:41] VITALS: BP 136/59; PULSE 61; TEMP 98.9
[2019-02-16 06:05] LABS: BASO # 0.1 (0.0-0.2); BASO % 0.8 % (0.0-2.0); EOS # 0.2 (0.0-0.7); EOS % 2.2 % (0-4.0); GRAN # 7.2 (1.4-6.5); GRAN % 73.9 % (42.2-75.2); LYMPH # 1.3 (1.2-3.4); LYMPH % 12.9 % (20.0-51.0); MEAN CELL VOLUME 94 fl (80.0-100.0); MEAN CORPUSCULAR HGB CONC 31 g/dl (33.0-37.0); MEAN PLATELET VOLUME 9.5 fl (7.4-10.4); MONO % 9.8 % (1.7-9.3); PLATELET COUNT 251 K/mm3 (130-400); RED BLOOD COUNT 3.22 M/mm3 (4.20-5.60); REDCELL DISTRIBUTION WIDTH-CV 13.1 % (11.5-14.5)
[2019-02-16 06:12] LABS: HEMATOCRIT 30.1 % (42.0-52.0); HEMOGLOBIN 9.4 g/dl (13.5-18.0); MEAN CORPUSCULAR HEMOGLOBIN 29 pg (27.0-31.0)
[2019-02-16 06:16] LABS: CALCIUM 7.9 mg/dL (8.4-10.2); CREATININE, serum 2.67 (0.66-1.25); POTASSIUM 4.2 mmol/L (3.4-5.0)
--- NOTE | 2019-02-16 07:00 | NUR ---
Received report with night nurse Alanna BARDALES. Reported with primary nurse Spencer BARDALES. Assisting with patient cares from [phone].
[2019-02-16 07:29] VITALS: BP 135/67; PULSE 67; TEMP 97.9
[2019-02-16 08:32] LABS: COLLECTION METHOD CLEAN CATCH
[2019-02-16 08:44] LABS: PH 5 (5-8); SQUAMOUS EPITHELIAL 0-2 /hpf; URINE APPEARANCE Clear; URINE BACTERIA None Seen /hpf; URINE BILIRUBIN Negative (NEGATIVE); URINE BLOOD 3+ (NEGATIVE); URINE COLOR Straw; URINE GLUCOSE Negative (NEGATIVE); URINE KETONE Negative (NEGATIVE); URINE LEUKOCYTE ESTERASE Negative (NEGATIVE); URINE NITRATE Negative (NEGATIVE); URINE PROTEIN(semi-quant) Negative (NEGATIVE); URINE RBC >50 /hpf; URINE UROBILINOGEN Negative (NEGATIVE)
--- NOTE | 2019-02-16 08:52 | NUR ---
Pt returned to Rm 352 per cart after having surgery to L hand. Hand wrapped with VONNIE bandage and he can move all his fingers. Hand up on pillow and has drain at site. Good cap refill. IV fluids changed back to NS infusing at 125mL/hr. Cpap on for the night by RT. Requested Morphine x2 this shift and then [place] 5 this AM. Ice to left hand. Tele with SR. Refused to eat after sx, pt dozes to sleep frequently. VS and blood sugars within normal range this shift. Call light with in reach. Will continue to monitor. Urinal at bedside.
[2019-02-16 09:20] LABS: CREATININE, serum 2.57 (0.66-1.25)
[2019-02-16 09:22] LABS: FRACTIONAL EXCRETION OF NA+ 5.4 %
--- NOTE | 2019-02-16 09:38 | NUR ---
Pt awake and alert upon entry, C/O pain at surgical site left hand, medications given make pain tolerable, shift assessments complete, left Pt call light in rerach, bed in lowest position.
--- NOTE | 2019-02-16 10:23 | NUR ---
Several visit attempts; Patient's Municipal Firefighter present and thanked Diaper Machine Tender for being available for Prabhjot and other patients.
[2019-02-16 11:19] VITALS: BP 148/66; PULSE 67; TEMP 97.4
--- NOTE | 2019-02-16 11:23 | NUR ---
SW attended clinical rounds. The patient's son, Prabhjot Mendez, was at bedside. The patient's kindey functioning has not changed much from yesterday. Plan is for a bladder scan today. SW then followed up with the patient and the patient's son, Prabhjot Mendez, about discharge plan. SW updated them on IPR and also discussed home with supervision and home health vs SNF again. The patient and patient's son report that they do not know what they want to do yet and would like for SW to follow back up with them tomorrow morning. SW to continue to follow.
--- NOTE | 2019-02-16 13:54 | NUR ---
Primary nurse was assisted with [phone] patient care by [employer] student Jt Begum and [employer] instructor Laura Le RN-BC.
[2019-02-16 16:18] VITALS: BP 133/73; PULSE 70; TEMP 98.1
--- NOTE | 2019-02-16 18:48 | NUR ---
Pt resting in room, dressing changed twice during the day, sensation in fingers diminished and pain increased before the first dressing change, contacted provider and checked for radial pulse during dressing change, pulse is readily palpable +2, Pt has C/O pain and medications were given for relief. VS have been stable.
[2019-02-16 19:41] LABS: HEMATOCRIT 28.3 % (42.0-52.0); HEMOGLOBIN 9.1 g/dl (13.5-18.0)
[2019-02-16 20:19] VITALS: BP 118/60; PULSE 66; TEMP 98.1
--- NOTE | 2019-02-16 22:30 | NUR ---
CALL TO [facility] FOR [facility]. NOTIFIED OF DRAIN TUBING BEING DISCONNECTED AND DRESSING BEING SATURATED WITH BLOOD REQUIRING DRESSING CHANGE AT 1900, 2200. REPORTED PATIENT REPORTS SENSATION IN ALL FINGERS. NO PAIN UNLESS WITH MOVEMENT, FINGERS OR WARM WITH >3 SEC CAP REFILL. NO NEW ORDERS RECEIVED. INSTRUCTED TO REINSERT TUBING ON DRAIN AND CHANGE DRESSING FOR DRAINAGE.
[2019-02-17] VITALS (9 sets, daily range): BP systolic 106–146; BP diastolic 53–86; PULSE 62–79; TEMP 98.3–98.5
--- NOTE | 2019-02-17 04:46 | NUR ---
PATIENT SITTING UP IN BED. IV SITE CHANGED D/T OLD SITE IN RIGHT HAND LEAKING AT INSERTION SITE. PATIENT OBSERVED WITH INCREASE WORK OF BREATHING. DENIES C/O OF SOA. SEE FLOW SHEET FOR FVS OBTAINED. IV FLUIDS INFUSING ORDERED @ 125ML/HR. 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 CALL TO JAGJIT PATEL. NOTIFIED OF ABOVE DOCUMENTATION AND FVS CHARTED. REVIEWED RECENT KIDNEY FUNCTIONS AND IV FLUID ORDERS. ORDER RECEIVED TO STOP IV FLUIDS AND GIVE 40MG IV LASIX NOW.
[2019-02-17 06:20] LABS: BASO # 0.1 (0.0-0.2); BASO % 0.7 % (0.0-2.0); EOS # 0.2 (0.0-0.7); EOS % 3.3 % (0-4.0); GRAN # 5.4 (1.4-6.5); GRAN % 72.8 % (42.2-75.2); LYMPH # 0.9 (1.2-3.4); LYMPH % 12.3 % (20.0-51.0); MEAN CELL VOLUME 92 fl (80.0-100.0); MEAN CORPUSCULAR HGB CONC 32 g/dl (33.0-37.0); MEAN PLATELET VOLUME 9.7 fl (7.4-10.4); MONO # 0.8 (0.1-0.6); MONO % 10.4 % (1.7-9.3); PLATELET COUNT 219 K/mm3 (130-400); RED BLOOD COUNT 2.93 M/mm3 (4.20-5.60); REDCELL DISTRIBUTION WIDTH-CV 12.9 % (11.5-14.5)
[2019-02-17 06:23] LABS: CREATININE, serum 2.15 (0.66-1.25); POTASSIUM 4.1 mmol/L (3.4-5.0)
[2019-02-17 06:27] LABS: HEMOGLOBIN 8.5 g/dl (13.5-18.0); MEAN CORPUSCULAR HEMOGLOBIN 29 pg (27.0-31.0)
--- NOTE | 2019-02-17 09:26 | NUR ---
Pt resting in bed, Pt has C/O pain in left hand 01/07, medications have been given for relief, shift assessments complete, left Pt call light in reach, bed in lowest position.
--- NOTE | 2019-02-17 13:52 | NUR ---
Primary nurse was assisted with [phone] patient care by [employer] [facility] student Jt Begum and [employer] [facility] instructor Laura Le RN-BC.
--- NOTE | 2019-02-17 15:45 | NUR ---
Smiley, IPR Director, reports that they do not have a bed available and that they can re-eval on Wednesday. Smiley updated the patient's son Prabhjot Santamaria. JEANE then followed up with the patient's son, Prabhjot Mendez, and reviewed the above information and discussed alternate options; such as SNF and other IPRs. The patient's son reports that he wants to see how things go this weekend and re-eval the patient on Wednesday and if IPR can accept him. JEANE to continue to follow.
[2019-02-17 18:17] LABS: HEMATOCRIT 25.4 % (42.0-52.0); HEMOGLOBIN 8.1 g/dl (13.5-18.0)
--- NOTE | 2019-02-17 18:44 | NUR ---
Pt more awake and alert since returning to the floor from surgery, had C/O pain earlier and medicationd were given for relief, pain has diminished since given, bandage on left hand remains CDI, at this time, VS have remained stable.
--- NOTE | 2019-02-17 20:00 | NUR ---
Patient sitting up in bed visiting with sons. no c/o of pain or discomfort. LUE elevated on pillows. Finger tips warm and pink. patient reports felling in all fingers. Surgical dressing CDI. no visible bloody drainage. Unable to visualize incisions d/t dressing. Unable to assess radial and Ulnar d/t surgical dressing. brachial pulse present.
[2019-02-18] VITALS (11 sets, daily range): BP systolic 87–136; BP diastolic 36–60; PULSE 63–87; TEMP 97.9–98.8
--- NOTE | 2019-02-18 06:29 | NUR ---
02/18 0000: pATIENT ASLEEP IN BED. LUE ELEVATED ON PILLOW. SURGICAL DRESSING CDI. NO VISIBLE DRAINAGE. FINGER WARM AND PINK. UNABLE TO ASSESS RADIAL AND ULNAR PULSES D/T SURGICAL DRESSING. BRACHIAL PULSE NORMAL. 02/18 0600: NO CHANGE FROM ABOVE DOCUMENTATION. PATIENT ASLEEP WHEN ENTERING ROOM, AWAKENED WHEN GIVING IV ANTIBIOTICS. PRN HYDROCODONE GIVEN PER REQUEST EARLY THIS SHIFT FOR PAIN MANAGEMENT WITH MOVEMENT IN THE MORNING.
[2019-02-18 07:55] LABS: BASO % 0.4 % (0.0-2.0); EOS # 0.2 (0.0-0.7); EOS % 2.3 % (0-4.0); GRAN # 4.9 (1.4-6.5); GRAN % 71.1 % (42.2-75.2); LYMPH # 1.1 (1.2-3.4); LYMPH % 15.2 % (20.0-51.0); MEAN CELL VOLUME 92 fl (80.0-100.0); MEAN CORPUSCULAR HGB CONC 32 g/dl (33.0-37.0); MEAN PLATELET VOLUME 9.8 fl (7.4-10.4); MONO # 0.7 (0.1-0.6); MONO % 10.6 % (1.7-9.3); PLATELET COUNT 202 K/mm3 (130-400); RED BLOOD COUNT 2.36 M/mm3 (4.20-5.60)
[2019-02-18 08:04] LABS: HEMATOCRIT 21.8 % (42.0-52.0); HEMOGLOBIN 6.9 g/dl (13.5-18.0); MEAN CORPUSCULAR HEMOGLOBIN 29 pg (27.0-31.0)
[2019-02-18 08:09] LABS: CALCIUM 7.4 mg/dL (8.4-10.2); CREATININE, serum 1.86 (0.66-1.25); POTASSIUM 3.7 mmol/L (3.4-5.0)
--- NOTE | 2019-02-18 08:17 | NUR ---
Pt awake and alert, minimal C/O pain, fingers on operative hand are warm with good cap refill, shift assessments complete, left Pt call light in reach, bed in lowest position,
[2019-02-18 17:20] LABS: HEMATOCRIT 26.2 % (42.0-52.0); HEMOGLOBIN 8.6 g/dl (13.5-18.0)
--- NOTE | 2019-02-18 18:23 | NUR ---
Pt rwsting in room, he has been keeping his operative hand elevated on pillows throughout the day, has had some C/O pain in his hand but states that his pain is dimished from yesterday, two units LPRC was infused during the day without issues, VS have remained stable.
--- NOTE | 2019-02-18 20:00 | NUR ---
Shift assessment complete. Pt resting in bed, awake, a&o, cooperative c cares. Pt reports continued pain to L hand, rated "9/10"; PRN pain medical housekeeper per pt req et cold pack applied. Pt denies any other c/o. Surgical dressing noted to L hand, C/D/I et LUE elevated. Fingers to L hand discolored, CSM remains intact. IV patent. Tele in place. Pt denies further needs at this time. Call light in reach, bed alarm on. Will continue to monitor.
[2019-02-19 04:12] VITALS: BP 141/75; PULSE 83; TEMP 98
[2019-02-19 06:50] LABS: BASO # 0.1 (0.0-0.2); BASO % 0.8 % (0.0-2.0); EOS # 0.4 (0.0-0.7); EOS % 5.8 % (0-4.0); LYMPH # 1.1 (1.2-3.4); LYMPH % 17.8 % (20.0-51.0); MEAN CELL VOLUME 91 fl (80.0-100.0); MEAN CORPUSCULAR HGB CONC 32 g/dl (33.0-37.0); MEAN PLATELET VOLUME 10.1 fl (7.4-10.4); MONO # 0.6 (0.1-0.6); MONO % 9.8 % (1.7-9.3); PLATELET COUNT 186 K/mm3 (130-400); RED BLOOD COUNT 2.76 M/mm3 (4.20-5.60); REDCELL DISTRIBUTION WIDTH-CV 13.4 % (11.5-14.5)
[2019-02-19 06:54] LABS: CALCIUM 7.5 mg/dL (8.4-10.2); CREATININE, serum 1.46 (0.66-1.25); POTASSIUM 3.5 mmol/L (3.4-5.0)
[2019-02-19 06:58] LABS: HEMATOCRIT 25.2 % (42.0-52.0); HEMOGLOBIN 8.1 g/dl (13.5-18.0); MEAN CORPUSCULAR HEMOGLOBIN 29 pg (27.0-31.0)
[2019-02-19 07:51] VITALS: BP 116/60; PULSE 79; TEMP 97.9
--- NOTE | 2019-02-19 10:12 | NUR ---
Pt sitting up in recliner watching TV, some C/O pain in left hand, medications given for relief, no other complaints at this time, shift assessments complete, left hand fingers warm to touch, cap refill good. left Pt call light in reach.
[2019-02-19 11:09] VITALS: BP 131/60; PULSE 67; TEMP 98
[2019-02-19 16:13] VITALS: BP 126/61; PULSE 68; TEMP 98.1
--- NOTE | 2019-02-19 18:46 | NUR ---
Pt has been napping on and off during the day, had some C/O pain in his left hand that would radiated to the upper arm at times, VS have reamined stable.
--- NOTE | 2019-02-19 19:40 | NUR ---
Shift assessment complete. Pt resting in bed, awake, a&o c occasional forgetfull statements. Pt cooperative c cares. Pt reports continued pain to L hand "shooting" up L arm; provided c PRN pain med per pt req. Pt denies any other c/o at this time. L hand injury dressing per ortho C/D/I, CSM intact et radial pulse strong. IV patent. Tele in place. Pt denies further needs at this time. Call light in reach, bed alarm on. Will continue to monitor.
[2019-02-19 19:53] VITALS: BP 124/54; PULSE 79; TEMP 98.4
[2019-02-19 23:46] VITALS: BP 137/66; PULSE 71; TEMP 98.5
[2019-02-20 05:55] VITALS: BP 139/70; PULSE 75; TEMP 98.1
[2019-02-20 06:37] LABS: BASO % 0.6 % (0.0-2.0); EOS # 0.4 (0.0-0.7); EOS % 6.1 % (0-4.0); GRAN # 4.5 (1.4-6.5); GRAN % 68.8 % (42.2-75.2); LYMPH # 0.9 (1.2-3.4); LYMPH % 13.5 % (20.0-51.0); MEAN CELL VOLUME 92 fl (80.0-100.0); MEAN CORPUSCULAR HGB CONC 32 g/dl (33.0-37.0); MEAN PLATELET VOLUME 9.6 fl (7.4-10.4); MONO # 0.7 (0.1-0.6); MONO % 10.4 % (1.7-9.3); PLATELET COUNT 203 K/mm3 (130-400); RED BLOOD COUNT 2.98 M/mm3 (4.20-5.60); REDCELL DISTRIBUTION WIDTH-CV 13.3 % (11.5-14.5)
[2019-02-20 06:39] LABS: HEMATOCRIT 27.3 % (42.0-52.0); HEMOGLOBIN 8.7 g/dl (13.5-18.0); MEAN CORPUSCULAR HEMOGLOBIN 29 pg (27.0-31.0)
[2019-02-20 06:40] LABS: INR 1.1 (0.8-3.0); PROTHROMBIN TIME 12.3 SECONDS (9.7-12.8)
[2019-02-20 06:45] LABS: CALCIUM 7.7 mg/dL (8.4-10.2); CREATININE, serum 1.22 (0.66-1.25); POTASSIUM 3.7 mmol/L (3.4-5.0)
--- NOTE | 2019-02-20 07:00 | NUR ---
Report received from CATIA Contreras. Pt resting in bed, son Prabhjot at bedside asking about plan of care and for am care. Will provide. Pt requesting PRN pain meds, shift superintendent caustic cresylate to provide, will continue to monitor.
[2019-02-20 07:25] VITALS: BP 151/61; PULSE 76; TEMP 98.2
--- NOTE | 2019-02-20 09:50 | NUR ---
Assessment charted. Pt left hand can only see tips of fingers, they are warm, CMS intact but pt cannot move them on his own. L hand dressing is occlusive and plastered so hardened. IVF to RFA. BLE scaling and flakey but no swelling. Pt c/o pain to L hand at 6/10 when moving but no pain at rest. Anticipatng discharge today, wishes to go home but agreeagble to IPR. Will contineu to monitor.
[2019-02-20 11:29] VITALS: BP 135/69; PULSE 70; TEMP 98
[2019-02-20] MEDS ORDERED: CORDARONE200 MG/TAB PO (11:58)
[2019-02-20] MEDS ORDERED: COZAAR 50MG50 MG/TAB PO (11:59)
[2019-02-20] MEDS ORDERED: ASPIRIN 81M81 MG/TA2 PO (12:00)
[2019-02-20] MEDS ORDERED: TYLENOL 325MG325 MG PO (12:01)
[2019-02-20] MEDS ORDERED: NORCO 325 MG-51 TAB PO (12:01)
--- NOTE | 2019-02-20 13:52 | NUR ---
Smiley, IPR Director, reports that she is able to accept the patient. JEANE attempted to contact the patient's son, Prabhjot Mendez, to update. JEANE left him a voicemail. The patient is to discharge today, 02/20, to [facility]. No additional needs at this time.
[2019-02-20 14:32] VITALS: BP 135/69; PULSE 70; TEMP 98
--- NOTE | 2019-02-20 15:30 | NUR ---
Called report to IPR nurse Lupe who will resume care of patient. INT dc'd, tip intact. Telemetry rmoved. Escorted pt to IPR via w/c. All belongings transported with patient. Denies needs, criteria met.
== END 2019-02-20 15:00 | DRG 579 ==
LOC: COL.ER 19:43 → MEDICAL 22:44
PROVIDERS: Family Medicine; Nurse Practitioner Family; Orthopaedic Surgery; Physician Assistant; ADMIT Emergency Medicine
PROC: 0JCK0ZZ Extirpation of Matter from Left Hand Subcutaneous Tissue and Fascia, Open Approach (ICD-10-PCS; 2019-02-15)
PROC: 01N50ZZ Release Median Nerve, Open Approach (ICD-10-PCS; principal; 2019-02-15 17:30)
PROC: 0KND0ZZ Release Left Hand Muscle, Open Approach (ICD-10-PCS; 2019-02-15 17:30)
PROC: 01N40ZZ Release Ulnar Nerve, Open Approach (ICD-10-PCS; 2019-02-15 17:30)
PROC: 0JQK0ZZ Repair Left Hand Subcutaneous Tissue and Fascia, Open Approach (ICD-10-PCS; 2019-02-17)
PROC: 0JCK0ZZ Extirpation of Matter from Left Hand Subcutaneous Tissue and Fascia, Open Approach (ICD-10-PCS; 2019-02-17)
DX: S60.222A Contusion of left hand, initial encounter (principal); N17.0 Acute kidney failure with tubular necrosis; D62 Acute posthemorrhagic anemia; T79.A12A Traumatic compartment syndrome of left upper extremity, initial encounter; G56.02 Carpal tunnel syndrome, left upper limb; E78.5 Hyperlipidemia, unspecified; I25.10 Atherosclerotic heart disease of native coronary artery without angina pectoris; I12.9 Hypertensive chronic kidney disease with stage 1 through stage 4 chronic kidney disease, or unspecified chronic kidney disease; N18.9 Chronic kidney disease, unspecified; E11.22 Type 2 diabetes mellitus with diabetic chronic kidney disease; G47.33 Obstructive sleep apnea (adult) (pediatric); N40.0 Benign prostatic hyperplasia without lower urinary tract symptoms; E03.9 Hypothyroidism, unspecified; I34.0 Nonrheumatic mitral (valve) insufficiency; M10.9 Gout, unspecified; I48.91 Unspecified atrial fibrillation; M19.90 Unspecified osteoarthritis, unspecified site; I25.2 Old myocardial infarction; Y93.B1 Activity, exercise machines primarily for muscle strengthening; Z79.01 Long term (current) use of anticoagulants; Z79.84 Long term (current) use of oral hypoglycemic drugs; Z95.5 Presence of coronary angioplasty implant and graft; Z86.73 Personal history of transient ischemic attack (TIA), and cerebral infarction without residual deficits
CPT/HCPCS: OP; 99232-AI; 99233-AI; G0378; J0330; J0690; J1100; J1650; J1815; J1940; J2270; J2405; J2704; J3010; J7030; P9016

== ENCOUNTER 2019-02-20 15:40 | Inpatient (IN) | payer MEDICARE, BC ==
[~2019-02-20] VITALS: Ht 188 cm; Wt 102.4 kg
[~2019-02-20 15:40] MED LIST changes: +ASPIRIN 81M81 MG/TA2 PO; +BRILINTA90 MG PO; +CORDARONE200 MG/TAB PO; +COZAAR 50MG50 MG/TAB PO; +LIPITOR 80MG80 MG PO; +LOPRESSOR 225 MG/TAB PO
[2019-02-20 15:53] VITALS: BP 142/73; PULSE 65; TEMP 98.2
--- NOTE | 2019-02-20 18:36 | NUR ---
Pt has splint intact to LUE and on pillows, call lt in reach, food here, sons and grandson visiting, yellow gown and fall wristband in place, glasses in reach.
--- NOTE | 2019-02-20 19:29 | NUR ---
Report to CATIA Pritchard. Family left. Called RT about setting up CPAP later.
--- NOTE | 2019-02-20 19:30 | NUR ---
Shift assessment complete. Patient in chair, reclined. States, pain 7/10 in left hand. Left hand drg CDI, hand/arm elevated on pillow. Prn pain medication given per pt request. Denies further needs at this time. Will continue to monitor.
[2019-02-21 05:11] VITALS: BP 151/65; PULSE 73; TEMP 98.5
--- NOTE | 2019-02-21 06:15 | NUR ---
Patient in bed, resting. States he has no pain when he doesn't move. Declined pain medication at this time. Will continue to monitor.
--- NOTE | 2019-02-21 10:52 | NUR ---
Report from CATIA Pritchard. Pt ate breakfast sitting up in bed, has reading glasses in reach, LUE with splint intact, elevated on pillows. Took pills whole with water. Pleasant, alert, call lt in reach.
--- NOTE | 2019-02-21 11:24 | NUR ---
Dyspnea on exertion with OT and dressing.
--- NOTE | 2019-02-21 13:23 | NUR ---
Pt ate poorly at lunch, states he is not hungry, agreed he is constipated, will provide rehab cocktail with miralax and colace, started senna for QHS
--- NOTE | 2019-02-21 13:52 | NUR ---
SW met with the patient to complete assessment on Rehab. Pt is alert & seems oriented. He is able to verbally communicate his needs & wants to others. Pt lives alone since his passed about a year ago but has good support from his sons, Prabhjot Jerry (ph#[phone]) & Jose Avelar (ph#[phone]). Pt's home is 1 story w/ 2 steps to enter w/ handrail on the right. The bathroom has a walk in shower w/ door & grab bars. The toilet is ADA height w/ grab bars. Pt reports being independent with ADLs & walked mostly w/ a s/cane. Pt also reports having two walkers. Pt states he does some cooking but eats out mostly, does some shopping, takes his own medication, & was still driving. He reports his sons help w/ laundry, housekeeping, & other tasks. Pt's PCP is Dr. Luis Grimes and he receives his medications at the [facility], which he reports no difficulties obtaining his meds. The pt does not have advanced directives in EMR, but does have them completed and at home & it's reported that the patient's DPOA-HC is Prabhjot jerry & Jose. Pt does report having some depression due to the loss of his & his current medical issues & is open to having SW visit with him. Pt plans to return back home w/ support from his sons. His goal is to be able to walk better.
--- NOTE | 2019-02-21 16:45 | NUR ---
Dr. Hannon rounds at this time and completes dressing change to left hand. Telfa pads x2 applied to incision sites, kerlix gauze wrapped, and marleni bandage applied. with YUNI to change dressing PRN for any drainage. Care ongoing.
--- NOTE | 2019-02-21 16:45 | NUR ---
Dr. Hannon rounds at this time and completes dressing change to left hand. Telfa pads x2 applied to incision sites,4X4 gauze applied on top for padding and between fingers for spacing, kerlix gauze wrapped, and marleni bandage applied. with YUNI to change dressing PRN for any drainage. Care ongoing.
[2019-02-21 18:34] VITALS: BP 132/68; PULSE 84; TEMP 98.3
--- NOTE | 2019-02-21 21:10 | NUR ---
Up to restroom and returned to bed. Unable to have bowel movement. Provided with scheduled sennokot. Assessment completed. Left hand dressing yellow/reddish drainage present through dressing to marleni wrap. Dressing changed at this time. Left hand edema present with bruising to all fingers. Pulse present in left wrist. Patient denies any pain at this time. Denies needs. Call light in reach.
--- NOTE | 2019-02-21 23:38 | NUR ---
Resting in bed. Denies needs. Denies pain at this time. Left hand elevated as ordered. Call light in reach.
--- NOTE | 2019-02-22 04:03 | NUR ---
Resting in bed. left hand elevated on pillow. Denies needs. Call light in reach.
[2019-02-22 05:45] VITALS: BP 138/67; PULSE 83; TEMP 98.2
--- NOTE | 2019-02-22 05:45 | NUR ---
Patient dressing changed this AM due to yellow/reddish drainage present. Tolerated well. Incontinent of urine. Cares provided. Denies other needs at this time.
--- NOTE | 2019-02-22 06:20 | NUR ---
Patient left hand dressing changed x2 throughout night. Denied pain throughout night. Remained elevated on pillows as ordered. Incontinent this AM. Otherwise ambulated to restroom x1 assist with gait belt and cane. Denies needs this AM. Call light in reach.
--- NOTE | 2019-02-22 06:45 | NUR ---
Report given to CATIA Suarez
--- NOTE | 2019-02-22 08:48 | NUR ---
Pt is awake and A/Ox4, sitting up in bed. He states his fingers to his left arm are aching. Pt offered tylenol and norco, refused at this time. Pt also refused ice pack at this time. Gauze/VONNIE wrap dressing is CDI. Left arm elevated on pillow. Pt took all AM medications without difficulty. Denies any other needs. Bed alarm is on.
--- NOTE | 2019-02-22 10:03 | NUR ---
Pt continues to state his left hand "aches". Elevated on pillow. Pt continues to refuse ice pack or pain medication. Fingers/hand remain swollen and bruised but WALKING DRAGLINE OPERATOR is withing normal limits and cap. refill is <2. Pt also given PRN colace and miralax for constipation.
--- NOTE | 2019-02-22 10:23 | NUR ---
While working with OT, pt requested PRN tylenol for 8/10 left hand pain.
--- NOTE | 2019-02-22 14:37 | NUR ---
Pt given prune juice for constipation. Continues to refuse to eat lunch. Will monitor.
--- NOTE | 2019-02-22 16:17 | NUR ---
Spoke w/ pt & reviewed the team conference. Pt stated he understood but did not seem to care as he was more concerned & focused about his "constipation". Infomred him of tentative d/c for , 03/02/19 w/ recommendations for home health. Pt had no questions/concerns at this time.
--- NOTE | 2019-02-22 17:35 | NUR ---
Pt continues to state he's constipated throughout shift despite colace, miralax, prune juice x4. Pt requesting "something else." Pt was encouraged to sit on the toilet where he had a medium sized soft, formed bowel movement. Pt continues to state he is "extremely uncomfortable." Pt appears to be very anxious regarding said constipation. Emotional support provided.
[2019-02-22 17:52] VITALS: BP 154/72; PULSE 80; TEMP 97.2
--- NOTE | 2019-02-22 19:30 | NUR ---
SHIFT REPORT OBTAINED FROM SOL BARDALES EARLIER. PT IN BED BUT IN GREAT DISTRESS. HAVING ABD CRAMPING AND INCONTINENT LOOSE BROWN STOOL. NOTED A LG HARD STOOL MIXED IN. PT REPORTS HE HAD NOT HAD A BM IN AT LEAST A WEEK. PT ORIENTED X4. SON DENIES PT HAS ANY CONFUSION. PT CLEANED UP/ LINENS CHANGED. PT VERY GRATEFUL. RELATES CRAMPING HAS LESSENED BUT HAVING LOOSE OOZING STOOL. PT CLEANED UP AGAIN. PT HAS SLOW CONTINUAL LIQUID STOOL OOZING. WILL CLEAN PT UP FREQUENTLY. APPLIED CRIS OINTMENT TO BUTTOCKS. CALL LIGHT IN REACH. BED ALARM SET. PT AGREED WITH PLAN. ENC PT TO CALL AT ANY TIME. PT APPRECIATIVE.
--- NOTE | 2019-02-22 19:49 | NUR ---
PT AGREED TO TAKE PAIN MEDICATION LT HAND WAS THROBBING. LT HAND HAS BULKY DRESSING WITH SMALL AMT BLOODY DRG. FINGERS BRUISED AND SWOLLEN. GOOD SENSATION TO FINGERTIPS. ENC ELEVATION ON PILLOW OR CHEST. REFUSED ICE PACK. PT STILL HAVING LOOSE LIQ STOOLS. CHECKING FOR DRYNESS Q HR UNTIL SLOWS DOWN.
--- NOTE | 2019-02-22 21:45 | NUR ---
PT RESTING COMFORTABLEY IN BED. ABD CRAMPING HAS STOP. LT HAND PAIN TOLERABLE. REFUSES CPAP TONIGHT. AMT OF INCONTINENT LOOSE STOOLS HAS DECREASED. CALL LIGHT IN REACH. BED ALARM SET.
[2019-02-23 05:03] VITALS: BP 145/66; PULSE 79; TEMP 98.3
--- NOTE | 2019-02-23 06:26 | NUR ---
BLOOD SUGAR WAS 68- GAVE OJ. INCREASED TO OVER 70. ASYMPTOMATIC. PT RESTED WELL LAST NIGHT. INCONT BM SLOWED DOWN SOME.
[2019-02-23 06:37] LABS: BASO % 0.5 % (0.0-2.0); EOS # 0.3 (0.0-0.7); EOS % 3.6 % (0-4.0); GRAN # 6.2 (1.4-6.5); GRAN % 75.1 % (42.2-75.2); LYMPH % 11.9 % (20.0-51.0); MEAN CELL VOLUME 91 fl (80.0-100.0); MEAN CORPUSCULAR HGB CONC 32 g/dl (33.0-37.0); MEAN PLATELET VOLUME 9.4 fl (7.4-10.4); MONO # 0.7 (0.1-0.6); MONO % 8.7 % (1.7-9.3); PLATELET COUNT 292 K/mm3 (130-400); RED BLOOD COUNT 3.06 M/mm3 (4.20-5.60); REDCELL DISTRIBUTION WIDTH-CV 13.2 % (11.5-14.5)
[2019-02-23 06:39] LABS: HEMATOCRIT 27.9 % (42.0-52.0); MEAN CORPUSCULAR HEMOGLOBIN 29 pg (27.0-31.0)
[2019-02-23 06:56] LABS: CALCIUM 8.2 mg/dL (8.4-10.2); CREATININE, serum 1.16 (0.66-1.25); POTASSIUM 3.2 mmol/L (3.4-5.0)
--- NOTE | 2019-02-23 08:33 | NUR ---
Patient had two incontinent BM's this morning. Patient very emotional this morning. Refused to eat most of his breakfast this morning. Reports pain to his bottom. No open sores or redness observed to the area. Given prn tylenol. Will continue to monitor.
--- NOTE | 2019-02-23 10:09 | NUR ---
Visited w/ pt. Reviewed the Team Conference notes again w/ pt since he was preoccupied w/ having constipation yesterday. He stated he understood. Informed him of d/c for , 03/02/19, w/ recommendations for home health PT/OT/ST. Provided him w/ a home health list from [employer]gov. Pt had no questions/concerns at this time.
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
--- NOTE | 2019-02-23 15:42 | NUR ---
Faxed Psych consult order to Dr. Pham's office.
--- NOTE | 2019-02-23 15:43 | NUR ---
Spoke with patient and discussed his tearfullness and asked patient if he would be interested in trying a med to help with mood. He sounded open to this and Dr. Pham's office was faxed for a psych consult. Patient was also seen by Tar And Ammonia Pump Operator due to tearfullness and his need to just talk to someone.
--- NOTE | 2019-02-23 15:53 | NUR ---
Spoke with ortho office regarding patient possibly restarting his xerelto per request of Dr. Milton. Dr. Pacheco will be consulted about this. This nurse did a dressing change on patient this morning and when pressure dressing was removed there was no bleeding at first, but after patient elevated arm a few times the posterior wounds began to drain and drip down patient's arm. Area was swollen, but no redness to area. There was bruising around fingers and hand. Will continue to monitor. Awaiting a return call from Dr. Pacheco' office.
--- NOTE | 2019-02-23 16:08 | NUR ---
Spoke with Ben with Dr. Pacheco office and Iglesia said no to restarting the xerelto at this time. He will discus with Dr. Pacheco tomorrow and update us. Will continue to monitor.
[2019-02-23 18:13] VITALS: BP 126/60; PULSE 72; TEMP 97.7
--- NOTE | 2019-02-23 19:36 | NUR ---
Patient was a set up this morning for breakfast, but required someone to open a few containers for him in the afternoon. Patient is right handed, so is able to do most things with that right hand.
--- NOTE | 2019-02-24 00:03 | NUR ---
SET UP AND PLACED CPAP W ROOM AIR FOR SEVERIANO. DENIES NEEED FOR PAIN MED. CALL LIGHT IN REACH. BED ALARM SET.
--- NOTE | 2019-02-24 01:25 | NUR ---
PT RESTING QUIETLY WITH CPAP IN PLACE. NO DISTRESS.
[2019-02-24 05:30] VITALS: BP 145/75; PULSE 73; TEMP 97.9
--- NOTE | 2019-02-24 09:04 | NUR ---
Follow-up visit; Patient and his son thanked for stopping in again this morning and wishing Prabhjot well. Prabhjot appeared to be in good spirits this morning though in considerable pain from his hand.
--- NOTE | 2019-02-24 12:45 | NUR ---
Received call back from Prabhjot jerry pt's son. Reviewed the Team Conference notes. He stated he understood. Informed him of d/c for , 03/02/19 w/ recommendations for home health. Son did inquire about if the d/c could be Wednesday, since he has to be in [place] most of Wednesday. Told him SW would talk w/ the team. Did inquire about having someone w/ pt initially for supervision of safety. He wasn't sure but would keep that in mind. Talked about scheduling a Family Conference on 03/01/19, possibly around 1:45 pm but would have to get back w/ him on Wednesday once I knew next week's schedule. The son did inquire about the plan w/ the left hand. Told him that at this time, it is the team's understanding that the dressing changes will continue along w/ the splint. But told him we would get final orders from ortho before pt is d/c'd. He had no other questions at this time.
[2019-02-24 16:58] VITALS: BP 138/70; PULSE 73; TEMP 97.9
--- NOTE | 2019-02-24 16:59 | NUR ---
Dr. Bennett did dressing change to left hand. States that no further surgical intervention required, prefers to let wound heal by secodary intention. Pt has been incontinent of bowels and did not call. Informed son of this concern for hygiene when pt discharges home. Son requested pt be dressed in own clothes today, the shorts did not have a pull tab for the zipper, the pants were stained and too tight to button but donned anyway. Pt reported pain 10/10 this morning and at lunch, was awakened this dania and states pain is not too bad 5/10, has resting on his chest while supine.
--- NOTE | 2019-02-24 20:10 | NUR ---
Pt was again incont of loose stool without informing staff, son Jose visiting and alerted staff, pt has resisted getting cleaned up with each incident today, informed son of this concern. Dressing to L hand intact without shadowing. Report to CATIA Mondragon.
[2019-02-25 05:02] VITALS: BP 135/73; PULSE 78; TEMP 97.5
--- NOTE | 2019-02-25 06:36 | NUR ---
Pt slept most of the night. Denies the need for pain medication. Elevates left hand on pillows. Call light within reach.
--- NOTE | 2019-02-25 08:07 | NUR ---
Report from CATIA Mondragon. Pt still asleep in bed, awakend for breakfast and meds, max 1-2 assist to amb few steps to chair, uses urinal with set up at bedside, help to unfasten brief on one side, emptying assist. Pt denied dizziness. Fall wrist band, gripper socks in place, chair alarm on, call lt in reach. Set up for breakfast.
--- NOTE | 2019-02-25 08:13 | NUR ---
Pt has been having diarrhea last few days. Asked pt if he takes his diabetes meds at home, glipizide and metformin, pt states yes. Asked pt what he usually eats for breakfast at home, says wheaties, sausage, eggs. Asked if he ate at home or went out, he said both. He says he eats three meals a day at home, but he has not had any appetite since his admission.
--- NOTE | 2019-02-25 13:20 | NUR ---
Son Jose visited around lunchtime, brought more clothes from home, nurse updated him about previous clothes brought from home that did not fit or shorts that did not have zipper, that his brother Prabhjot Santamaria had asked about pt wearing hospital gowns instead of his own clothes and this is why, or that pt has been having incont of B/B. All three pants from yesterday soiled in dirty clothes hamper and answered Jose that the [facility] does not provide laundry services for pt's private clothes. Pt had urinated on his clothes per OT this morning while standing in BR to void and OT reports that pt did not care to change his clothes, told pt that was not ok and he was changed into hosp gown by DOM Sosa.
--- NOTE | 2019-02-25 15:04 | NUR ---
Gave norco for pain and pillows to elevate LUE, shadowing on dressing between first two fingers. Staff delivered a bag with admission paper from 09/28/18 including a gold colored men's watch and a black "Digitak" headphone set that is worn around the neck and earbuds placed in ears- pt did not recognize headphones, so taped to his closet doors for family to see. Watch to closet. Earlier, Jose brought two pairs of shirts and three pairs of pants, one pair of pants had suspect bloody stain and debris like seeds or egg sacs, placed directly into laundry. Pt not wanting to eat soup for lunch, declined offer to open banana, mixed Banitrol into applesauce and edu pt about taking for loose stools. Watching tv in bed, alarm turned on, call lt in reach.
--- NOTE | 2019-02-25 15:31 | NUR ---
Changed dressing to LUE d/t drainage. Drizzled NS over telfa's to open wounds prior to removing. Incisions are open and edges are not approximated (as indicated they would be), sanguinous drainage, loose sutures present to palm. Extensive ecchymosis, purple and green colored. Telfa to back of hand and palmar incisions, gauze between fingers, abd to back of hand, wrapped with kerlix and marleni. Pt yamel well. Elevated on pillows, declined ice.
--- NOTE | 2019-02-25 18:12 | NUR ---
Pt had old neighbor lady visiting this afternoon. Only ate saltine crackers from lunch. Is eating supper.
[2019-02-25 18:13] VITALS: BP 122/60; PULSE 69; TEMP 98.5
--- NOTE | 2019-02-25 20:01 | NUR ---
Son Jose informed of pt's refusal to use CPAP, he is adamant staff make pt wear it, this nurse called RT Danelle to inform him of request.
[2019-02-26 05:54] VITALS: BP 130/65; PULSE 72; TEMP 97.6
--- NOTE | 2019-02-26 06:22 | NUR ---
RESTING QUIETLY. INCONT. OF BLADDER. PT DENIES PAIN. dRESSING/VONNIE INTACT TO LT HAND.
--- NOTE | 2019-02-26 10:24 | NUR ---
PT WAS LAYING IN BED WHEN NURSE FIRST CAME INTO ROOM. MEAL TRAY BROUGHT IN. PT REFUSED EGGS AND TOAST. PT DRANK THE OJ HIS BS WAS 66 EARLIER THIS AM. WITH RECHECK BEFORE MEAL IT WAS 77. PT REFUSED MEAL EXCEPT HE ATE APPLESAUCE. PT WAS ASSISTED TO URINATE AND HE SPILLED SMALL AMT OF URINE ON THE FLOOR. DEPENDS AER DRY. PT TRANSFERED TO RECLINER AND ALARMS ARE SET. PT WAS GIVEN THE WEDNESDAY PAPER. PT IS SOMEWHAT TEARFUL AND WANTS TO GO HOME.
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
[2019-02-26 16:31] VITALS: BP 147/63; PULSE 62; TEMP 98.4
--- NOTE | 2019-02-27 03:00 | NUR ---
PT WORE HIS CPAP FOR APPROX. 5 HOURS.
[2019-02-27 03:44] VITALS: BP 145/60; PULSE 70; TEMP 97.8
[2019-02-27 04:12] VITALS: BP 147/64; PULSE 67; TEMP 98.1
--- NOTE | 2019-02-27 05:56 | NUR ---
PT IN BED. OCCASIONALLY SITS UP TO USE URINAL. PT SELDOM USES CALL LIGHT. PT TOOK TYLENOL AT BEGINNING OF SHIFT FOR LT HAND PAIN.
--- NOTE | 2019-02-27 09:16 | NUR ---
Report from CATIA Horton. Pt bedresting with SCDs on, LUE elevated on pillows, no shadowing to dressing, declined breakfast of toast and eggs, states he drank his oj. Enc to eat for protien/nutrition but only accepting of strawberry shake made with glucerna. Pt asked what was "PT" and "ST".
--- NOTE | 2019-02-27 10:02 | NUR ---
Follow-up visit; Patient states he feels better today and had a nice weekend with several visitors. Prabhjot seems stable emotionally though he seems to respond well to grief counseling.
--- NOTE | 2019-02-27 12:05 | NUR ---
Visited w/ pt about d/c scheduled for , 03/02/19. Inquired if he felt he was ready to go home & take care of himself & replied he was ready. Asked if he felt he would be able to take care of himself because he hasn't been doing much w/ the staff here. He stated he knew that but felt he would be fine at home. Talked to him about recommendations for home health & asked if he had ever used a home health agency before. He told SW he has used [facility] but requested a list of home health providers which was given to him. Pt had no other questions/concerns at this time.
[2019-02-27 17:30] VITALS: PULSE 67; TEMP 98
[2019-02-27 18:39] VITALS: BP 150/80
--- NOTE | 2019-02-27 20:36 | NUR ---
Night nurse reported pt kept CPAP on overnight for four hours. Family had been pressing this issue but pt had been refusing. Imodium given this morning as pt has had loose stools daily. Dressing remains CDI. Sons visited today. This dania Rick states that pt is not going home , pt states he is, messaged Smiley, IPR Director/SW. Glucotrol stopped d/t poor appetite and low am BG. Son states pt said he is getting his appetite back, son helped order pt a second supper tray. Report to Alexa. Pt in bed with alarm on, call lt in reach, yellow gripper socks in place.
--- NOTE | 2019-02-27 20:45 | NUR ---
Patient incontinent of urine. Cares provided. x1 assist. Denies other needs at this time. Call light in reach.
--- NOTE | 2019-02-27 23:40 | NUR ---
Resting in bed. Brief dry at this time. Jarvis pain. Denies needs. Call light in reach.
--- NOTE | 2019-02-28 02:05 | NUR ---
Lying in bed with eyes closed. When name called out patient opens eyes. Brief dry, patient did have 100mL of dark, clear yellow urine in urinal. Urinal emptied at this time. Patient denies pain. Assisted patient in repositioning pillows. Patient denies further needs. Bedside table in reach along with call light. Side rails up.
--- NOTE | 2019-02-28 04:15 | NUR ---
Lying in bed with eyes closed. Respirations even and unlabored. Voided 275mL dark, clear yellow urine in urinal. Emptied urinal at this time. Side rails up, call light in reach.
[2019-02-28 04:57] VITALS: BP 152/74; PULSE 68; TEMP 97.6
--- NOTE | 2019-02-28 06:15 | NUR ---
Resting with eyes closed. Opens eyes when name called. Denies pain. Denies need to urinate and brief dry. Asked patient if he would like to get up in the chair and the patient declines and says that he wants to rest longer. Repositioned head on pillow. Patient denies further needs.
--- NOTE | 2019-02-28 06:58 | NUR ---
Report provided to CATIA Damon.
--- NOTE | 2019-02-28 11:56 | NUR ---
Received call back from pt's son, Prabhjot jerry. Informed him that the team was fine w/ moving the d/c to 03/03/19. Which he was appreciative of but stated things have come up & neither him nor his brother would be available Wednesday & wondered if it could be 03/04/19. Told him that should be fine. We talked about doing a Family Conference but neither of them could be available until 5:30 pm. Told them the team would not be available but SW could stay late to visit w/ them. He will check with his brother & get back w/ SW. We also talked about team's concern w/ pt going home alone due to still needing quite a bit of assistance w/ self care. He seemed to understand & stated they would like some information on private duty caregivers, which SW can provide. He had no other questions/concerns at this time.
[2019-02-28 18:00] VITALS: BP 138/56; PULSE 65; TEMP 98.4
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
--- NOTE | 2019-02-28 20:00 | NUR ---
PATIENT ASSISTED 2 ASSIST WITH CANE TO BATHROOM. INCONTINENT OF SMALL LOOSE BM AND SMALL AMOUNT OF URINE/TOTAL ASSIST TO CHANGE AND SHANTEL-CARE DONE. STAFF UNDRESSES PATIENT DUE TO INCONTINENCY AND GOWN APPLIED. DENIES PAIN AT THIS TIME. RESTS SLOWLY BACK IN BED. SCD'S ON. HS MEDS ALL REVIEWED AND TAKEN WITHOUT PROBLEMS. BED ALARMS ON FOR SAFETY.
--- NOTE | 2019-02-28 22:41 | NUR ---
RESTS WITH EYES CLOSED. RESPIRATIONS WITH EASE.
--- NOTE | 2019-03-01 03:02 | NUR ---
Patient has been resting with eyes closed. Respirations with ease.
[2019-03-01 05:15] VITALS: BP 133/60; PULSE 74; TEMP 97.9
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
--- NOTE | 2019-03-01 10:50 | NUR ---
Follow-up visit; Patient thanked Labor Relations Manager for visit and prayer this morning. Prabhjot is experiencing some pain in his hand this morning and is a little under the weather but appeared glad to have campus security officer visit.
--- NOTE | 2019-03-01 11:00 | NUR ---
ASKED PT IF HE NEEDED TO CHANGE HIS BRIEF D/T INCONTINENCE. PT STATED NO.
--- NOTE | 2019-03-01 13:00 | NUR ---
ASKED PATIENT AGAIN IF HE NEEDED TO CHANGE HIS BRIEF AND ASKED IF HE HAD URINATED. PT AGAIN STATED NO. UNSURE IF INTAKE SPECIALIST HAS HELPED PT TO BATHROOM OR EMPTIED HIS URINAL. WILL CHECK BACK WITH PATIENT IN A LITTLE WHILE.
--- NOTE | 2019-03-01 15:03 | NUR ---
ASKED PATIENT AGAIN IF HE NEEDED TO CHANGE HIS BRIEF AND HE STATED NO. I POLITELY ASKED PT IF I COULD DOUBLE CHECK TO MAKE SURE HIS BRIEF WASN'T WET BC I DIDN'T WANT HIS SKIN TO GET IRRITATED. PT COOPERATIVE. PT WAS INCONTINENT OF MODERATE AMT OF URINE. PT'S BRIEF CHANGED, SKIN CARE PERFORMED.
--- NOTE | 2019-03-01 16:30 | NUR ---
PT HAVING FAMILY MEETING AT THIS TIME.
--- NOTE | 2019-03-01 17:06 | NUR ---
A Family Conference was conducted with pt & pt's 2 sons, Prabhjot jerry & Jose. Also present was PT, ST, & Cable Dispatcher/SW. Cable Dispatcher/SW started by explaining the purpose of the meeting. The therapists explained how pt has been functioning & has made progress but continue to have concerns about self care & safety due to not being able to use his left hand. Informed them of d/c for 03/04/19, w/ recommendation for home health & 24 hour supervision/assistance. They seemed fine with this. However, when pt found out the 24 hour supervision/assistance was private pay, he was not receptive to this. Did mention SNF being an option but he again was not receptive to this. Prabhjot Jerry talked to pt about his options & that him nor Jose can be w/ him 21/12. Pt was willing to consider SNF if it's paid by Medicare. Pt's first choice is [facility] & second choice is [facility]. Told them SW will look into it tomorrow morning.
[2019-03-01 18:14] VITALS: BP 132/66; PULSE 72; TEMP 98.4
--- NOTE | 2019-03-01 20:30 | NUR ---
HS meds all reviewed and given. Patient alert and oriented at this time. Denies pain. Reports son just left. Ice pack applied to left hand and tylenol given for pain prevention. SCD's and covers applied. Declines snack and HS care. NEEDLE LOOM SETTER reports patient incontinent this evening and changed.
--- NOTE | 2019-03-02 02:32 | NUR ---
Patient has been resting with eyes closed. CPAP on through night.
[2019-03-02 05:23] VITALS: BP 141/70; PULSE 72; TEMP 97.5
--- NOTE | 2019-03-02 09:33 | NUR ---
Contacted [place] at [facility] [place]. Inquired if they would have a private bed for 03/04/19, on SNF. Was informed they would. Referral made & faxed referral information. Contacted [facility] @ [place]. Left message w/ Kalyani regarding possible referral.
--- NOTE | 2019-03-02 14:49 | NUR ---
Spoke w/ pt's sons via phone about both [facility] [place] & [facility] having private rooms & openings. They were pleased w/ this. Jose stated he would prefer pt stay here at [facility] [place] & Prabhjot jerry stated it was up to pt. Spoke w/ pt & reviewed w/ him about the family conference yesterday & wanting to go to either [facility] or [facility]. Told him they both have openings & private rooms. He told SW that he wants to stay in [place] so will go to [facility]. Pt signed SNF choice form. Reviewed the Medicare Rights form w/ pt, which he stated he understood & signed.
[2019-03-02 16:06] VITALS: BP 139/67; PULSE 59; TEMP 98
--- NOTE | 2019-03-02 19:28 | NUR ---
Report from CATIA Gilbert. Pt called to use urinal x2 today. Transfers w/ 1 assist. Rates pain 1-3/10 and declines tylenol offered. Bedrests between therapies, needs enc to attend group, eventually agreeable. Poor appetite, then asks for ice cream. Had visitors today. Son Jose here at [facility]ia shift change, verbalized concern about when was ortho in to see his left hand last? Informed son that ortho changed dressing on 02/24. Son concerned that this was last week, enc son that the current dressing change orders for every three days and as needed was appropriate, the dressing was reported changed 02/28, this nurse changed 02/25 and had no concerns, plan to change tomorrow as ordered, SNF will continue to provide dressing changes. Son states that pt is having pain- informed son of pt's prior pain ratings and refusal of tylenol. Night nurse witnessed interaction.
--- NOTE | 2019-03-02 20:00 | NUR ---
REPORT OBTAINED FROM SANDRA WINTERS. NOTED SONS CONCERN FRO FATHERS PAIN LEVEL AND ORTHO ASSESSING WOUND FOR IMPROVEMENT. PT NOW CALLING FOR PAIN MED. JAVIER JUL. GAVE TYLENOL. RATED LT HAND PAIN LEVEL 4/10. ADDED PILLOWS FOR ELEVATION OF LT HAND. REFUSED ICE PACK AT THIS TIME. SON SRIDHAR REMAINS HERE VISITING AND WATHCING TV WITH FATHER. CALL LIGHTHDF REACH. BED ALARM SET.
[2019-03-03 05:22] VITALS: BP 149/69; PULSE 61; TEMP 97.6
--- NOTE | 2019-03-03 07:51 | NUR ---
Report from CATIA Ordaz. Pt asks "What's that metformin for, my heart?" Edu. Pt cued to elevate LUE on pillows rather than dangle off pillows. Yellow gripper socks in place, bed alarm on, call lt in reach, urinal in reach.
--- NOTE | 2019-03-03 11:35 | NUR ---
Follow-up visit; Prabhjot appeared to be happy to see Stewarding Supervisor and thanked her for visiting him while he is here. He stated he will be going to [facility] and was glad to hear there is a Stewarding Supervisor there.
--- NOTE | 2019-03-03 16:56 | NUR ---
JEANE collaborated with Jorge at [facility] to schedule a time for transport tomorrow, 03/03. Jorge states that noon-1300 would be best. JEANE attempted to contact the patient's son Prabhjot Santamaria to coordinate this time for transport. JEANE left a voicemail. JEANE contacted the patient's other son, Jose. Jose reports that him or his brother will provide transport to [facility] tomorrow afternoon. JEANE updated the patient's RN, Lupe. JEANE to continue to follow.
[2019-03-03 18:39] VITALS: BP 137/66; PULSE 63; TEMP 98.2
--- NOTE | 2019-03-03 20:58 | NUR ---
Psych consulted and ordered Remeron for QHS. Family visited today. Pt's mood varied. "Poor appetite" but asks for dessert snacks. No acute changes. Reported to night nurse pt's LUE dressing still needs changed. Dressing is intact without shadowing.
--- NOTE | 2019-03-03 22:00 | NUR ---
Changed dressing to left hand; Two incision on the back of hand approximately 3 inches in length. 0.5 cm in width. Incisions have bloody drainage which is mostly dried. Incision on palm approximately 2 inches in length and also has dried bloody drainage. +2 radial pulse. Patient able to wiggle all fingers and has good sensation. Re-dressed hand with telfa over the incisions then wrapped with guaze bandage and covered with marleni wrap.
--- NOTE | 2019-03-04 01:40 | NUR ---
Placed CPAP on patient at this time. Had refused earlier in the shift.
[2019-03-04 04:35] VITALS: BP 151/79; PULSE 63; TEMP 97.8
--- NOTE | 2019-03-04 04:39 | NUR ---
Assisted to reposition; brief checked and dry at this time.
--- NOTE | 2019-03-04 06:20 | NUR ---
Brief has been dry throughout the night. Bladder scan showed greater than 350. Abdomen soft and non-tender. Denies urge to void at this time. Will pass on to day shift nurse.
[2019-03-04] MEDS ORDERED: ANUSOL-HC SUPPO25 MG RC (08:44)
[2019-03-04] MEDS ORDERED: MIRTAZAPINE7.5 MG PO (08:44)
--- NOTE | 2019-03-04 08:45 | NUR ---
Received call from [facility] nurse stating pt's son, Jose, is requesting to speak w/ SW. Had him placed on the phone. He informed SW that they have decided not to go to [facility] after visiting yesterday. He proceed they had spoken to [facility] & want him to go there. Told him that we would work on that. Contacted weekend SW, Jacqui, informed her of the information above & she stated she would take care of it from here.
[2019-03-04] MEDS ORDERED: NOVLOG SQ (08:47)
--- NOTE | 2019-03-04 09:10 | NUR ---
JEANE recieved consult for family wanting to go to [facility] instead. JEAEN made contact with concrete precast moulder Edda and Faxed updated information for review with DC. Contact made with Elizabeth with change of plan for DC. Awaiting screen results. Possible DC today.
--- NOTE | 2019-03-04 09:26 | NUR ---
Dressing changed to left hand prior to discharge this afternoon. Small bloody drainage observed to old dressing. Area was cleaned and reapplied non stick telph pad and secured with 4x4 sterle gauze and wrapped with kerlix and marleni bandage. Patient tolerated with minimal discomfort reported. Patient reports pain 3/10 at this time, but refused any pain meds. Will continue to monitor.
--- NOTE | 2019-03-04 11:05 | NUR ---
Received orders on 02/23/[address] Hannon office. This was a new order for dressing change Q 3 days / PRN. Incision is open so don't be alarmed - loose sutures are intact. Tlfa, gauze between fingers, kerlix and marleni wrap.
--- NOTE | 2019-03-04 12:22 | NUR ---
[facility] accepted patient for a short term stay. Patient was notified of acceptance. SW met with patient and sons in room. Sons are going to transport the patient to [facility] at 01:30 pm. JEANE notifed call center operator-Edda at [facility] of family transport. Notified nurse of change in plan. Faxed DC plan to [facility] Nothing Follows.
--- NOTE | 2019-03-04 14:06 | NUR ---
Gave report to CATIA Malhotra @ [facility]. She voiced understanding. Patient Health Summary, Discharge Summary, and Home meds printed and sent to SNF. All appointments were made and were sent with patient's discharge instructions. Belongings gathered by AUDRA/Ines including gold watch, phone, senior sql server developer, cane, clothes; wound care supplies; and shoes. Patient transported via wheelchair by CATIA/Marisol and seatbelted for ride to SNF with son. Patient and son denied any questions.
== END 2019-03-04 13:50 | DRG 948 ==
PROVIDERS: Internal Medicine; ADMIT Hospitalist
DX: R53.81 Other malaise (principal); N17.9 Acute kidney failure, unspecified; T79.A0XD Compartment syndrome, unspecified, subsequent encounter; S60.222D Contusion of left hand, subsequent encounter; I48.91 Unspecified atrial fibrillation; E11.22 Type 2 diabetes mellitus with diabetic chronic kidney disease; I12.9 Hypertensive chronic kidney disease with stage 1 through stage 4 chronic kidney disease, or unspecified chronic kidney disease; N18.9 Chronic kidney disease, unspecified; I25.10 Atherosclerotic heart disease of native coronary artery without angina pectoris; F32.9 Major depressive disorder, single episode, unspecified; G31.84 Mild cognitive impairment of uncertain or unknown etiology; N40.0 Benign prostatic hyperplasia without lower urinary tract symptoms; M10.9 Gout, unspecified; D50.0 Iron deficiency anemia secondary to blood loss (chronic); G47.33 Obstructive sleep apnea (adult) (pediatric); E03.9 Hypothyroidism, unspecified; E78.5 Hyperlipidemia, unspecified; K59.00 Constipation, unspecified; X58.XXXD Exposure to other specified factors, subsequent encounter; I25.2 Old myocardial infarction; Z79.82 Long term (current) use of aspirin; Z95.5 Presence of coronary angioplasty implant and graft; Z86.73 Personal history of transient ischemic attack (TIA), and cerebral infarction without residual deficits
CPT/HCPCS: 99222-AI; 99231-AI; 99232-AI; 99239; J1815

== ENCOUNTER 2019-04-18 18:54 | Inpatient (IN) | payer MEDICARE, BC ==
[~2019-04-18] VITALS: Ht 188 cm; Wt 105.0 kg
[~2019-04-18 18:54] MED LIST changes: +ANUSOL-HC SUPPO25 MG RC; +MIRTAZAPINE7.5 MG PO
[2019-04-18 19:50] LABS: BASO # 0.1 (0.0-0.2); BASO % 0.7 % (0.0-2.0); EOS # 0.3 (0.0-0.7); EOS % 3.5 % (0-4.0); GRAN # 6.7 (1.4-6.5); GRAN % 76.7 % (42.2-75.2); HEMOGLOBIN 10.5 g/dl (13.5-18.0); LYMPH % 11.9 % (20.0-51.0); MEAN CELL VOLUME 87 fl (80.0-100.0); MEAN CORPUSCULAR HEMOGLOBIN 28 pg (27.0-31.0); MEAN CORPUSCULAR HGB CONC 32 g/dl (33.0-37.0); MEAN PLATELET VOLUME 9.8 fl (7.4-10.4); MONO # 0.6 (0.1-0.6); PLATELET COUNT 319 K/mm3 (130-400); RED BLOOD COUNT 3.74 M/mm3 (4.20-5.60)
[2019-04-18 19:51] LABS: HEMATOCRIT 32.6 % (42.0-52.0)
[2019-04-18 19:56] LABS: PROTHROMBIN TIME 11.8 SECONDS (9.7-12.8)
[2019-04-18 20:23] LABS: C-REACTIVE PROTEIN 1.8 mg/dL (0.0-0.9)
[2019-04-18 20:50] LABS: ALBUMIN 3.4 gm/dL (3.5-5.0); BILIRUBIN,TOTAL 0.5 mg/dL (0.0-1.0); CALCIUM 8.2 mg/dL (8.4-10.2); CREATININE, serum 1.32 (0.66-1.25); POTASSIUM 3.8 mmol/L (3.4-5.0); TOTAL PROTEIN 6.7 gm/dL (6.4-8.2)
[2019-04-18] MEDS ORDERED: LEVOXYL0.025 MG (21:02)
[2019-04-18] MEDS ORDERED: DIOVAN HCT 12.51 TA2 (21:04)
[2019-04-18] MEDS ORDERED: EFFE25TA (21:06)
[2019-04-19] VITALS (337 sets, daily range): BP systolic 81–131; BP diastolic 7–70; PULSE 69–75; TEMP 97.2–98.2; O2SAT 85–100
[2019-04-19 01:03] LABS: BASO # 0.1 (0.0-0.2); BASO % 0.8 % (0.0-2.0); EOS # 0.4 (0.0-0.7); EOS % 3.8 % (0-4.0); GRAN # 7.1 (1.4-6.5); GRAN % 66.7 % (42.2-75.2); LYMPH # 2.1 (1.2-3.4); LYMPH % 19.8 % (20.0-51.0); MEAN CELL VOLUME 88 fl (80.0-100.0); MEAN CORPUSCULAR HGB CONC 32 g/dl (33.0-37.0); MEAN PLATELET VOLUME 9.5 fl (7.4-10.4); MONO # 0.9 (0.1-0.6); MONO % 8.3 % (1.7-9.3); PLATELET COUNT 342 K/mm3 (130-400); RED BLOOD COUNT 3.05 M/mm3 (4.20-5.60); REDCELL DISTRIBUTION WIDTH-CV 14.1 % (11.5-14.5)
[2019-04-19 01:04] LABS: ALANINE AMINOTRANSFERASE 20 U/L (21-72); ALBUMIN 2.7 gm/dL (3.5-5.0); ALKALINE PHOSPHATASE 174 U/L (50-136); ANION GAP 8 mmol/L (7-16); AST,SGOT 15 U/L (15-37); BILIRUBIN,TOTAL 0.3 mg/dL (0.0-1.0); BLOOD UREA NITROGEN 24 mg/dL (9-20); CALCIUM 7.5 mg/dL (8.4-10.2); CARBON DIOXIDE 26 mmol/L (22-30); CHLORIDE 105 mmol/L (98-107); CREATININE, serum 1.38 (0.66-1.25); GLUCOSE 228 mg/dL (74-106); MAGNESIUM 1.7 mg/dL (1.6-2.3); PHOSPHOROUS 3.3 mg/dL (2.5-4.5); POTASSIUM 3.4 mmol/L (3.4-5.0); SODIUM 138 mmol/L (137-145); TOTAL PROTEIN 5.6 gm/dL (6.4-8.2)
[2019-04-19 01:08] LABS: HEMATOCRIT 26.7 % (42.0-52.0); HEMOGLOBIN 8.6 g/dl (13.5-18.0); MEAN CORPUSCULAR HEMOGLOBIN 28 pg (27.0-31.0)
[2019-04-19 01:16] LABS: TROPONIN-I < 0.012 ng/mL (0.000-0.035)
--- NOTE | 2019-04-19 01:17 | NUR ---
Received report from CATIA Gan.
--- NOTE | 2019-04-19 01:45 | NUR ---
Patient arrives to ICU room 8 via surgical bed. Patient arrives with a second liter NS bolus hanging to the right forearm. Patient is on 2L of oxygen via nasal cannula upon arrival, O2 saturation being 95%. All other vitals are obtained and within normal limits. Patient is alert and somewhat orientented and complains of leg pain as 5/10 at this time. Patient arrives with an marleni wrap covering the upper left leg and a hemovac drain to compression. Skin is warm and dry; the arms are flaking slightly. No other skin issues noted. An indwelling catheter is in place and is draining clear dark yellow urine. Pedal and post tibial pulses in the left leg are 1+, however, the extremity is warm and cap refill is less than 3 seconds. All other pulses are 2+ upon palpation. Jaimie aware of patient's arrival. Will continue to monitor.
--- NOTE | 2019-04-19 01:52 | NUR ---
Pt arrived to unit from pacu. Hemovac drain to left hip with minimal bloody drainage. Xerofoam 4x4 with ABD soft roll and acewrap dressing, CD&I. Got report of pressures being stable with last bp of 131/80 in PACU. After patient arrived to unit, BP was 103/55. 4 minutes later, bp of 74/47. Gave patient 1L bolus of NS. Pressures gradually went up. 2 IV starts, total of 3. 22G in left AC, 20g in left forearm, and 20g in right forearm. Patient was alert but drowsy from anethesia. Rojas started with clear yellow urine. After liter bolus, last BP reading of 130/62. Patient transferred to ICU.
[2019-04-19] MEDS ORDERED: PACERONE200 MG PO (02:53)
[2019-04-19] MEDS ORDERED: SYNTHROID0.125 MG/T PO (02:55)
[2019-04-19] MEDS ORDERED: NITROSTAT0.4 MG/TAB SL (02:58)
[2019-04-19] MEDS ORDERED: MIRALAX PA17 GM/Dose PO (02:59)
[2019-04-19] MEDS ORDERED: DIOVAN HCT 25 M1 TA1 PO (02:59)
[2019-04-19] MEDS ORDERED: EFFEXOR XR75 MG/CAP PO (03:00)
[2019-04-19 04:39] LABS: BASO # 0.1 (0.0-0.2); BASO % 0.5 % (0.0-2.0); EOS # 0.1 (0.0-0.7); EOS % 0.6 % (0-4.0); GRAN # 9.3 (1.4-6.5); GRAN % 82.9 % (42.2-75.2); LYMPH % 9.2 % (20.0-51.0); MEAN CELL VOLUME 88 fl (80.0-100.0); MEAN CORPUSCULAR HGB CONC 32 g/dl (33.0-37.0); MEAN PLATELET VOLUME 9.5 fl (7.4-10.4); MONO # 0.7 (0.1-0.6); MONO % 6.3 % (1.7-9.3); PLATELET COUNT 292 K/mm3 (130-400); REDCELL DISTRIBUTION WIDTH-CV 13.9 % (11.5-14.5)
[2019-04-19 04:41] LABS: HEMATOCRIT 24.7 % (42.0-52.0); HEMOGLOBIN 7.9 g/dl (13.5-18.0); MEAN CORPUSCULAR HEMOGLOBIN 28 pg (27.0-31.0)
[2019-04-19 04:46] LABS: ALANINE AMINOTRANSFERASE 16 U/L (21-72); ALBUMIN 2.7 gm/dL (3.5-5.0); ALKALINE PHOSPHATASE 175 U/L (50-136); ANION GAP 9 mmol/L (7-16); AST,SGOT 14 U/L (15-37); BILIRUBIN,TOTAL 0.5 mg/dL (0.0-1.0); BLOOD UREA NITROGEN 23 mg/dL (9-20); CALCIUM 7.3 mg/dL (8.4-10.2); CARBON DIOXIDE 24 mmol/L (22-30); CHLORIDE 107 mmol/L (98-107); CREATININE, serum 1.38 (0.66-1.25); GLUCOSE 239 mg/dL (74-106); POTASSIUM 3.5 mmol/L (3.4-5.0); SODIUM 140 mmol/L (137-145); TOTAL PROTEIN 5.6 gm/dL (6.4-8.2)
[2019-04-19 05:12] LABS: TROPONIN-I < 0.012 ng/mL (0.000-0.035)
--- NOTE | 2019-04-19 05:14 | NUR ---
Paged on-call orthopedic provider for pain management at 0217. Received three PRN orders for pain medication at 0225, including morphine, tylenol, and hydrocodone. PRN morphine administered at 0243; upon reassessment, patient reports pain has improved and rates leg pain as 2/10. Provider has since ordered a clear liquid diet to progress as tolerated.
--- NOTE | 2019-04-19 06:35 | NUR ---
Notified Jaimie of patient's hemoglobin of 7.9 and potassium of 3.5 at 0520. Received orders to transfuse one unit of PRBCs and to initiate potassium replacement protocol.
--- NOTE | 2019-04-19 07:15 | NUR ---
Report received from Venus BARDALES and care resumed.
[2019-04-19 07:21] LABS: COLLECTION METHOD CATHETER
[2019-04-19 07:35] LABS: PH 5 (5-8); SQUAMOUS EPITHELIAL 0-2 /hpf; URINE APPEARANCE Hazy; URINE BACTERIA None Seen /hpf; URINE BILIRUBIN Negative (NEGATIVE); URINE BLOOD 2+ (NEGATIVE); URINE COLOR Yellow; URINE GLUCOSE Negative (NEGATIVE); URINE KETONE Negative (NEGATIVE); URINE LEUKOCYTE ESTERASE Negative (NEGATIVE); URINE NITRATE Negative (NEGATIVE); URINE PROTEIN(semi-quant) 1+ (NEGATIVE); URINE RBC >50 /hpf
--- NOTE | 2019-04-19 07:49 | NUR ---
Bedside report given to CATAI Watson.
--- NOTE | 2019-04-19 08:50 | NUR ---
Assessment complete, see charting. Pt denies any pain unless he is moving. Educated pt on importance of movement for lungs, skin, etc and stated that we would be moving him more today and having PT see him. Did offer PRN pain med due to this and was accepted despite not having any pain while lying still. Order received this am for PRBC's which are currently infusing at this time. VSS. Will continue to follow.
--- NOTE | 2019-04-19 09:30 | NUR ---
Dr Blackwell in to see pt at this time. Will plan to transfer to floor.
--- NOTE | 2019-04-19 10:02 | NUR ---
JAC mustafa attended clinical rounds with the team. The patient is to move to surgical floor this day. After round JAC mustafa met with the patient and his son Prabhjot. The patient lives alone in [place]. The patient has another son, Jose. Prabhjot and Jose provide support to the patient and visit him frequently. The patient has a cane and walker which he uses sometimes. The patient receives home health sevices from [facility]. The patient's son reports a nurse provides medication management and a WINE CELLAR WORKER visits 3x weekly for ADL assistance. The patient does not have advanced directives in the EMR but reports they are completed and designate his sons, Prabhjot and Jose. The patient plans to return home upon discharge with his son, Prabhjot providing transportation. JAC mustafa contacted Sanchez at [facility]. She reports they will need discharge orders that state continue with home health services. human resources services specialist will continue to monitor.
--- NOTE | 2019-04-19 10:18 | NUR ---
Initial visit; Patient and his son thanked for coming in and offering prayer and encouragement for Prabhjot.
--- NOTE | 2019-04-19 11:15 | NUR ---
Dr Loya in to see pt at this time.
--- NOTE | 2019-04-19 11:35 | NUR ---
arrived on unit per bed from ICU, alert and oriented, marleni wrap dressing to left thigh CD&I, hemovac drain in place and to compression, pedal pulses 1+, SCDs on bilaterally, telemetry on and transmission verified with mixing technician, son at bedside
--- NOTE | 2019-04-19 11:39 | NUR ---
Report called to Melinda RN on surgical floor. Pt taken by bed on tele with chart and belongings to room 327. Bedside update given to Melinda at that time.
--- NOTE | 2019-04-19 11:50 | NUR ---
resting in bed, full assessment completed, see interventions for further info
--- NOTE | 2019-04-19 18:18 | NUR ---
Patient sitting up in bed. Son at the bedside. VSS. IV CDI, fluids infusing. Ice to left thigh, hemovac in place, CDI. 70 mls serosanguineous fluid removed. Patient reporting pain to left leg, pain medication will be administered when due. Rojas to dependent drainage, clear peach colored urine. Nurse encouraging patient to increase PO intake. SCD bilateral legs.Patient verbalized an understanding. No further needs expressed from patient. Call light within reach
--- NOTE | 2019-04-19 21:00 | NUR ---
Pt. sitting up in bed at this time. Pt. is A&OX3, assessment complete. INT to rt. ac and lt. forearm patent. IV to Lt AC patent, IV fluids infusing per orders. Dressing to lt. thigh CDI. Hemovac with bloody drainage noted. Pt. denies pain or other needs, call light within reach.
[2019-04-20] VITALS: BP 109/55; PULSE 74; TEMP 97.9
[2019-04-20 04:00] VITALS: BP 111/64; PULSE 78; TEMP 97.9
[2019-04-20 06:20] LABS: BASO # 0.1 (0.0-0.2); EOS # 0.4 (0.0-0.7); EOS % 5.3 % (0-4.0); GRAN # 4.1 (1.4-6.5); GRAN % 60.8 % (42.2-75.2); LYMPH # 1.6 (1.2-3.4); LYMPH % 23.3 % (20.0-51.0); MEAN CELL VOLUME 89 fl (80.0-100.0); MEAN CORPUSCULAR HGB CONC 31 g/dl (33.0-37.0); MEAN PLATELET VOLUME 9.4 fl (7.4-10.4); MONO # 0.6 (0.1-0.6); PLATELET COUNT 220 K/mm3 (130-400); RED BLOOD COUNT 2.84 M/mm3 (4.20-5.60); REDCELL DISTRIBUTION WIDTH-CV 14.3 % (11.5-14.5)
[2019-04-20 06:25] LABS: HEMATOCRIT 25.4 % (42.0-52.0); HEMOGLOBIN 7.9 g/dl (13.5-18.0); MEAN CORPUSCULAR HEMOGLOBIN 28 pg (27.0-31.0)
[2019-04-20 06:36] LABS: CALCIUM 7.4 mg/dL (8.4-10.2); CREATININE, serum 1.55 (0.66-1.25); POTASSIUM 4.1 mmol/L (3.4-5.0)
[2019-04-20 08:00] VITALS: BP 140/67; PULSE 88; TEMP 98.2
--- NOTE | 2019-04-20 08:00 | NUR ---
Patient in bed resting. Alert and oriented x 3. Shift assessment complete. Hemovac to left lower extremity with scant amount of bloody drainage present. Acewrap to LLE is CDI. Denies further needs at this time. Denies pain at this time.
[2019-04-20 12:45] VITALS: BP 132/70; PULSE 94; TEMP 98.2
--- NOTE | 2019-04-20 13:55 | NUR ---
JEANE received a phone call from the patient's son, Jose, to discuss discharge plan. Jose reports that with the patient now having a drain, he would not be able to go home until that is out. SW then reviewed PT's recommendation of post-acute rehab. Jose reports that he would be agreeable to this and that they would prefer 1) [facility]. He states their second preference would be [facility]. JEANE then met with the patient and the other patient's brother, Prabhjot Santamaria, to review Jose's preferences. The patient reports that he prefers to go home, but would be agreeable to [facility]. He is hopeful he would be able to go home, when ready to discharge. Prabhjot Santamaria became insistent that their preference is [facility] and that they do not want to considerable a second preference until they know for sure that [facility] is not able to accept them. JEANE presented and explained the Patient Choice Form to the patient. The patient chose 1) [facility]. Patient Choice Form signed by the patient and he was provided a copy. JEANE consulted [facility] Director, Smiley. Smiley reports that they are full right now. SW informed Prabhjot Santamaria. Prabhjot Santamaria reports that he wants to wait until ready to discharge to see if [facility] will have a bed. SW to continue to follow.
[2019-04-20 14:50] VITALS: BP 127/59; PULSE 91; TEMP 97.1
[2019-04-20 15:58] LABS: HEMATOCRIT 28.1 % (42.0-52.0); HEMOGLOBIN 8.8 g/dl (13.5-18.0)
--- NOTE | 2019-04-20 18:15 | NUR ---
Patient's IV fluids were discontinued. Christina care provided. Patient changed to yellow gown. Visitors have been in room all day. Patient in good spirits. Call light in reach, bed alar, under patient, bed in lowest position. Patient has not voided since catheter removal. Reported off to Penelope Elizabeth
--- NOTE | 2019-04-20 18:31 | NUR ---
Patient has done well throughout the day. Has been up to recliner throughout the day. Hemovac with scant drainage present. Denies further needs at this tiem. Will report off to ornamental ironworker.
[2019-04-20 20:00] VITALS: BP 135/60; PULSE 88; TEMP 100.1
--- NOTE | 2019-04-20 21:19 | NUR ---
Sitting up in bed with eyes open. Explains that he has pain in his left leg, it is sore. Dressing CDI, hemovac drain compressed with bloody drainage in tubing. Ice pack is on left thigh. Patient says that he is ready to go to sleep after taking his pills. Denies need to urinate at this time. Explained that we will continue to monitor this. Denies further needs at this time.
--- NOTE | 2019-04-20 21:27 | NUR ---
Administered pain medication and Tylenol as prescribed for pain and low rade temp. Patient explains he has pain in his left leg, rates 5/10, that is sore in description. Denies further needs at this time.
--- NOTE | 2019-04-20 22:52 | NUR ---
Patient able to void approx 30ml clear yellow urine. Patient denies feeling the need to urinate more and does not feel that his bladder is full. Requests to go back to sleep at this time.
[2019-04-21] VITALS (12 sets, daily range): BP systolic 106–154; BP diastolic 45–85; PULSE 80–90; TEMP 97.5–99.2
--- NOTE | 2019-04-21 00:25 | NUR ---
Having minimal pain in left leg. Dressing CDI, Ice pack on left thigh. Patient attempts to urinate in urinal. Unable to void. Patient says that he does not feel like he needs to urinate and his bladder does not feel full. Performed bladder scan and there is approx 14mL urine in bladder. Encouraged patient to drink water. Reapplied CPAP. Patient denies further needs at this time.
--- NOTE | 2019-04-21 03:58 | NUR ---
Patient has large incontinence of urine. Bed linens changed and patient cleaned. Dressing to left thigh CDI. Hemovac drain intact with small amount of bloody discharge in tubing. Patient explains that he is having increased pain in the left leg. Pain medication administered as prescribed. Patient explains that he would like to try to go back to sleep at this time. Denies further needs.
--- NOTE | 2019-04-21 04:54 | NUR ---
Lying in bed with eyes closed. Respirations even and unlabored. No signs or symptoms of discomfort noted at this time.
--- NOTE | 2019-04-21 06:30 | NUR ---
Lying in bed in supine position with eyes closed. Respirations even and unlabored. No signs or symptoms of discomfort noted.
[2019-04-21 06:56] LABS: BASO # 0.1 (0.0-0.2); EOS # 0.4 (0.0-0.7); EOS % 5.7 % (0-4.0); GRAN # 4.2 (1.4-6.5); GRAN % 61.6 % (42.2-75.2); LYMPH # 1.4 (1.2-3.4); LYMPH % 20.1 % (20.0-51.0); MEAN CELL VOLUME 90 fl (80.0-100.0); MEAN CORPUSCULAR HGB CONC 32 g/dl (33.0-37.0); MEAN PLATELET VOLUME 9.3 fl (7.4-10.4); MONO # 0.8 (0.1-0.6); MONO % 11.3 % (1.7-9.3); PLATELET COUNT 227 K/mm3 (130-400); RED BLOOD COUNT 2.58 M/mm3 (4.20-5.60); REDCELL DISTRIBUTION WIDTH-CV 14.3 % (11.5-14.5)
[2019-04-21 07:01] LABS: HEMATOCRIT 23.1 % (42.0-52.0); HEMOGLOBIN 7.3 g/dl (13.5-18.0); MEAN CORPUSCULAR HEMOGLOBIN 28 pg (27.0-31.0)
[2019-04-21 07:06] LABS: CALCIUM 7.5 mg/dL (8.4-10.2); CREATININE, serum 1.39 (0.66-1.25)
--- NOTE | 2019-04-21 09:15 | NUR ---
Hemovac #1 to compression removed to left thigh site was CDI and well approximated. There are [address] Incision site was covered with airstrip and a 4x4 placed with an marleni wrap to site that tube was in. Pt tolerated well with no complaints of pain or discomfort at this time. Will continue to monitor-JOE MINAYA, RN
--- NOTE | 2019-04-21 09:43 | NUR ---
L AC IV site would not flush. Removed left INT. Pressure applied. Pt tolerated well.Will continue to monitor-JOE MINAYA, RN
--- NOTE | 2019-04-21 12:06 | NUR ---
Transfusion initiated per orders. This nurse remained with patient initial 15 minutes of infusion.
--- NOTE | 2019-04-21 14:09 | NUR ---
JEANE collaborated with the patient's PA, Evette. Evette reports that the patient may tentatively be ready to discharge this Wednesday or Wednesday. [facility] Director, Smiley, reports that they would not have a bed available. JEANE contacted the patient's son, Jose, to inform. Jose verbalized understanding and states that they would then prefer [facility] and he was agreeable for SW to send a referral. JEANE met with the patient to inform. The patient was agreeable to [facility]. JEANE contacted and faxed a referral to Myriam at [facility]. SW awaiting their screen.
--- NOTE | 2019-04-21 15:20 | NUR ---
Myriam, at [facility], reports that they have accepted the patient for now. She states that they have attempted to contact the patient's son, Jose, and would like to speak to him prior to the patient coming to them. She states that during the patient's last stay with them; the patient's son, Jose, would take the patient out of their facility without approval and yelled at one of their staff members. Myriam reports that she will keep in touch with the SW cone marker this weekend. SW attempted to contact Jose. SW left him a voicemail. SW to continue to follow.
[2019-04-21 15:38] LABS: HEMOGLOBIN 9.6 g/dl (13.5-18.0)
--- NOTE | 2019-04-21 18:02 | NUR ---
Patient has done well throughout the day. X2 assist back to bed after supper. With walker and gait belt. Denies pain throughout the day. Dressing remains CDI. Denies further needs at this time. Will report off to warehouse worker 2nd shift.
--- NOTE | 2019-04-21 21:13 | NUR ---
Patient in bed, incontinent of bladder and changed at this time. Takes HS meds without problem including [place] 7.5mg po for left thigh pain. Is alert and oriented. SL to right and left FA, no redness or swelling noted. Left thigh with island drsg intact, removed marleni bandage due to incontinence, old drain site dry.
[2019-04-22 03:28] VITALS: BP 139/65; PULSE 91; TEMP 98.4
--- NOTE | 2019-04-22 04:00 | NUR ---
Incontinent of bladder, bed linens changed. Denies pain at this time.
[2019-04-22 07:12] LABS: BASO # 0.1 (0.0-0.2); BASO % 0.7 % (0.0-2.0); EOS # 0.4 (0.0-0.7); EOS % 5.4 % (0-4.0); GRAN # 4.6 (1.4-6.5); GRAN % 64.8 % (42.2-75.2); LYMPH # 1.3 (1.2-3.4); LYMPH % 17.9 % (20.0-51.0); MEAN CELL VOLUME 89 fl (80.0-100.0); MEAN CORPUSCULAR HGB CONC 32 g/dl (33.0-37.0); MEAN PLATELET VOLUME 9.5 fl (7.4-10.4); MONO # 0.8 (0.1-0.6); MONO % 10.9 % (1.7-9.3); PLATELET COUNT 258 K/mm3 (130-400); RED BLOOD COUNT 2.89 M/mm3 (4.20-5.60); REDCELL DISTRIBUTION WIDTH-CV 14.1 % (11.5-14.5)
[2019-04-22 07:13] LABS: CALCIUM 7.6 mg/dL (8.4-10.2); CREATININE, serum 1.18 (0.66-1.25); POTASSIUM 3.8 mmol/L (3.4-5.0)
[2019-04-22 07:18] LABS: HEMATOCRIT 25.7 % (42.0-52.0); HEMOGLOBIN 8.2 g/dl (13.5-18.0); MEAN CORPUSCULAR HEMOGLOBIN 28 pg (27.0-31.0)
--- NOTE | 2019-04-22 08:00 | NUR ---
Patient in bed, alert and oriented x 3. Assessment complete. Air strip to left thigh with minimal drainage present. Denies pain at this time. Sons in room. Denies further needs at this time.
[2019-04-22 08:37] VITALS: BP 147/73; PULSE 95; TEMP 98
[2019-04-22 11:36] VITALS: BP 128/49; PULSE 84; TEMP 98.8
[2019-04-22 14:16] LABS: HEMATOCRIT 28.5 % (42.0-52.0); HEMOGLOBIN 9.3 g/dl (13.5-18.0)
[2019-04-22 16:00] VITALS: BP 143/58; PULSE 91; TEMP 98.4
--- NOTE | 2019-04-22 18:25 | NUR ---
Patient has done well throughout the day. Has been in recliner throughout most of the day. X2 assist back to bed. Patient states he is tired and was unable to sleep well throughout the night so has napped on and off throughout the day. Uninterested in lunch and states he is not very hungry for supper. Son at bedside at this time. Continues to deny pain. Denies further needs at this time. Will report off to cage shift manager.
[2019-04-22 20:00] VITALS: BP 136/78; PULSE 91; TEMP 98.1
--- NOTE | 2019-04-22 22:17 | NUR ---
CPAP JUST PUT ON PT BY RT. PT IN BED. FAMILY CONCERNED ABOUT HIS APPETITE AND GENERAL OVERALL WELL BEING. PT RESTING QUIETLY AT PRESENT.
[2019-04-23] VITALS: BP 138/74; PULSE 90; TEMP 98.2
[2019-04-23 03:52] VITALS: BP 129/73; PULSE 90; TEMP 97.9
[2019-04-23 08:10] VITALS: BP 134/75; PULSE 88; TEMP 98.2
[2019-04-23 08:32] LABS: BASO # 0.1 (0.0-0.2); BASO % 0.7 % (0.0-2.0); EOS # 0.4 (0.0-0.7); EOS % 5.4 % (0-4.0); GRAN # 4.5 (1.4-6.5); GRAN % 67.2 % (42.2-75.2); LYMPH % 15.4 % (20.0-51.0); MEAN CELL VOLUME 89 fl (80.0-100.0); MEAN CORPUSCULAR HGB CONC 32 g/dl (33.0-37.0); MEAN PLATELET VOLUME 9.1 fl (7.4-10.4); MONO # 0.7 (0.1-0.6); MONO % 10.9 % (1.7-9.3); PLATELET COUNT 267 K/mm3 (130-400); RED BLOOD COUNT 2.98 M/mm3 (4.20-5.60); REDCELL DISTRIBUTION WIDTH-CV 14.2 % (11.5-14.5)
[2019-04-23 08:34] LABS: HEMATOCRIT 26.5 % (42.0-52.0); HEMOGLOBIN 8.5 g/dl (13.5-18.0); MEAN CORPUSCULAR HEMOGLOBIN 29 pg (27.0-31.0)
[2019-04-23 08:43] LABS: CALCIUM 7.7 mg/dL (8.4-10.2); CREATININE, serum 1.05 (0.66-1.25); POTASSIUM 3.9 mmol/L (3.4-5.0)
--- NOTE | 2019-04-23 10:22 | NUR ---
Patient resting in bed upon assessment. States he is having pain in his left knee at 8/10 with movement 2-3/10 at rest. Left knee is swollen. Patient thinks the swelling has increased "a little" since the fall that caused the hematoma. No pain around incision site. Ice applied to knee. Patient given 1 dose of [place] with minimal relief but wants to wait a little longer before trying another dose. Family is concerned that patient has not had a bowel movement in a few days. PRN miralax given. Physical therapy came to see patient to try and have him move to the chair and he stated he wanted to stay in bed at this time. Will continue to encourage patient to get out of bed and move to chair throughout shift. Physical therapy stated they would stop back. Call light in reach. Will continue to monitor.
[2019-04-23 11:59] VITALS: BP 122/73; PULSE 86; TEMP 98.5
[2019-04-23 16:59] VITALS: BP 138/82; PULSE 81; TEMP 97.4
[2019-04-23 20:34] VITALS: BP 126/63; PULSE 83; TEMP 98
--- NOTE | 2019-04-23 21:10 | NUR ---
Pt resting in bed. No distress noted. Family has left for the evening and states they will not be back until Wednesday. Respirations even and unlabored. Lungs clear. Abdomen soft, nontender. BS+. Pt denies pain. L hip airstrip in place- clean, dry and intact. L knee edematous. Pt denies needs.
[2019-04-24 00:27] VITALS: BP 149/72; PULSE 80; TEMP 97.6
[2019-04-24 04:35] VITALS: BP 135/58; PULSE 84; TEMP 98.6
--- NOTE | 2019-04-24 06:00 | NUR ---
Pt slept well throughout the night without complaints. VSS. Pt is complaining of pain in L leg this morning. PRN pain medication given and Ice pack applied.
[2019-04-24 07:34] LABS: BASO # 0.1 (0.0-0.2); BASO % 0.7 % (0.0-2.0); EOS # 0.5 (0.0-0.7); EOS % 6.6 % (0-4.0); GRAN # 4.6 (1.4-6.5); GRAN % 65.9 % (42.2-75.2); LYMPH # 1.1 (1.2-3.4); LYMPH % 15.5 % (20.0-51.0); MEAN CELL VOLUME 89 fl (80.0-100.0); MEAN CORPUSCULAR HGB CONC 32 g/dl (33.0-37.0); MEAN PLATELET VOLUME 9.2 fl (7.4-10.4); MONO # 0.8 (0.1-0.6); MONO % 10.9 % (1.7-9.3); PLATELET COUNT 287 K/mm3 (130-400); RED BLOOD COUNT 3.01 M/mm3 (4.20-5.60); REDCELL DISTRIBUTION WIDTH-CV 14.3 % (11.5-14.5)
[2019-04-24 07:36] LABS: HEMATOCRIT 26.9 % (42.0-52.0); HEMOGLOBIN 8.6 g/dl (13.5-18.0); MEAN CORPUSCULAR HEMOGLOBIN 29 pg (27.0-31.0)
[2019-04-24 07:45] LABS: ALBUMIN 2.8 gm/dL (3.5-5.0); BILIRUBIN,TOTAL 1.4 mg/dL (0.0-1.0); CALCIUM 7.7 mg/dL (8.4-10.2); CREATININE, serum 1.05 (0.66-1.25); POTASSIUM 3.7 mmol/L (3.4-5.0)
--- NOTE | 2019-04-24 08:00 | NUR ---
PATIENT IS DROWSY THIS AM. EMR TRAINER REPORTS GIVING PATIENT A NORCO FOR PAIN BEFORE SHIFT CHANGE. PATIENT ORIENTED BUT VERY DROWSY. VSS. PATIENT REPORTS PAIN IS BETTER BUT DOESN'T RATE HIS PAIN ON PAIN SCALE, HE FALLS BACK ASLEEP. LLE DRESSING IS CD&I WITH AIRSTRIP. NOTED +1 SWELLING IN LLE THIGH. PEDAL PULSES +1 TO BLE. PATIENT INCONTINENT, BRIEF INPLACE. HEAD TO TOE ASSESSMENT COMPLETE. AM MEDS GIVEN. PATIENT RESTING UP IN BED WITH CALL LIGHT IN REACH.
[2019-04-24 08:08] VITALS: BP 116/58; PULSE 92; TEMP 98.1
[2019-04-24] MEDS ORDERED: NORCO 325 MG-7.1 TAB PO (09:09)
[2019-04-24] MEDS ORDERED: SENNA-S 50 MG-81 TAB PO (09:09)
--- NOTE | 2019-04-24 10:37 | NUR ---
The patient is to discharge this day, 04/24 to [facility] for a fci stay. JEANE presented the IM form to the patient. The patient understood and signed the form. Original was placed in the chart and a copy was provided. [facility] will transport at 1300 all were in agreeance. JEANE contacted the patient's son, Jose and he was in agreeance. JEANE faxed discharge orders. There are no additional needs at this time.
[2019-04-24 11:00] VITALS: BP 116/58; PULSE 92; TEMP 98.1
[2019-04-24 11:15] VITALS: BP 116/58; PULSE 92; TEMP 98.1
[2019-04-24 11:34] VITALS: BP 131/61; PULSE 85; TEMP 97.9
--- NOTE | 2019-04-24 13:50 | NUR ---
PATIENT IS DISCHARGING TO [facility]IA [facility]. GAVE INFO PACKET TO BATTERY PLATE ASSEMBLER. CALLED REPORT TO [facility] NURSE. DC'D IV SITE AND COVERED WITH GAUZE & BANDAID. DC'D TELE. PATIENT DRESSED AND READY FOR DISCHARGE.
== END 2019-04-24 13:50 | DRG 982 ==
LOC: COL.ER 18:54 → SURG 21:42 → ICU 04-19 02:34 → JCC 04-19 12:42
PROVIDERS: Emergency Medicine; Nurse Practitioner Family; Physician Assistant; Student in an Organized Health Care Education/Training Program; ADMIT Internal Medicine
PROC: 0KNR0ZZ Release Left Upper Leg Muscle, Open Approach (ICD-10-PCS; principal; 2019-04-19)
PROC: 0JCM0ZZ Extirpation of Matter from Left Upper Leg Subcutaneous Tissue and Fascia, Open Approach (ICD-10-PCS; 2019-04-19)
DX: T79.A22A Traumatic compartment syndrome of left lower extremity, initial encounter (principal); I48.20 Chronic atrial fibrillation, unspecified; M16.12 Unilateral primary osteoarthritis, left hip; I10 Essential (primary) hypertension; E78.5 Hyperlipidemia, unspecified; I25.10 Atherosclerotic heart disease of native coronary artery without angina pectoris; E11.22 Type 2 diabetes mellitus with diabetic chronic kidney disease; G47.33 Obstructive sleep apnea (adult) (pediatric); S70.12XA Contusion of left thigh, initial encounter; I12.9 Hypertensive chronic kidney disease with stage 1 through stage 4 chronic kidney disease, or unspecified chronic kidney disease; E87.6 Hypokalemia; N18.9 Chronic kidney disease, unspecified; E03.9 Hypothyroidism, unspecified; I95.9 Hypotension, unspecified; D63.1 Anemia in chronic kidney disease; N40.0 Benign prostatic hyperplasia without lower urinary tract symptoms; I34.0 Nonrheumatic mitral (valve) insufficiency; M19.042 Primary osteoarthritis, left hand; W19.XXXA Unspecified fall, initial encounter; M10.9 Gout, unspecified; I25.2 Old myocardial infarction; R53.81 Other malaise; Z79.82 Long term (current) use of aspirin; Z79.84 Long term (current) use of oral hypoglycemic drugs; Z99.81 Dependence on supplemental oxygen; Z95.5 Presence of coronary angioplasty implant and graft; Z86.73 Personal history of transient ischemic attack (TIA), and cerebral infarction without residual deficits
CPT/HCPCS: 99223-AI; 99231-AI; 99232-AI; 99233-AI; 99239; J0690; J1815; J2270; J2405; J2704; J3010; J3480; J7030; J7120; P9016

== ENCOUNTER 2019-06-01 09:12 | Emergency (ER) | payer MEDICARE, BC ==
[~2019-06-01] VITALS: Ht 188 cm; Wt 104.5 kg
[~2019-06-01 09:12] MED LIST changes: +DIOVAN HCT 12.51 TA2; +EFFE25TA; +EFFEXOR XR75 MG/CAP PO; +LEVOXYL0.025 MG; +NITROSTAT0.4 MG/TAB SL; +NORCO 325 MG-7.1 TAB PO; +SENNA-S 50 MG-81 TAB PO; +SYNTHROID0.125 MG/T PO
[2019-06-01 09:24] VITALS: TEMP 97.1
[2019-06-01 10:21] LABS: BASO # 0.1 (0.0-0.2); BASO % 0.8 % (0.0-2.0); EOS # 0.3 (0.0-0.7); EOS % 4.5 % (0-4.0); GRAN # 4.9 (1.4-6.5); GRAN % 72.8 % (42.2-75.2); HEMATOCRIT 36.6 % (42.0-52.0); HEMOGLOBIN 11.6 g/dl (13.5-18.0); LYMPH # 0.9 (1.2-3.4); LYMPH % 13.2 % (20.0-51.0); MEAN CELL VOLUME 91 fl (80.0-100.0); MEAN CORPUSCULAR HEMOGLOBIN 29 pg (27.0-31.0); MEAN CORPUSCULAR HGB CONC 32 g/dl (33.0-37.0); MEAN PLATELET VOLUME 9.1 fl (7.4-10.4); MONO # 0.6 (0.1-0.6); MONO % 8.4 % (1.7-9.3); PLATELET COUNT 236 K/mm3 (130-400); RED BLOOD COUNT 4.04 M/mm3 (4.20-5.60); REDCELL DISTRIBUTION WIDTH-CV 14.6 % (11.5-14.5)
[2019-06-01 10:34] LABS: ALBUMIN 3.5 gm/dL (3.5-5.0); BILIRUBIN,TOTAL 0.6 mg/dL (0.0-1.0); CALCIUM 8.3 mg/dL (8.4-10.2); CREATININE, serum 1.05 (0.66-1.25); POTASSIUM 3.5 mmol/L (3.4-5.0); TOTAL PROTEIN 7.1 gm/dL (6.4-8.2)
[2019-06-01 11:35] VITALS: BP 132/77; PULSE 71
== END 2019-06-01 11:42 | disposition home or self-care (01) ==
LOC: COL.ER 09:12
PROVIDERS: Nurse Practitioner
DX: S80.01XA Contusion of right knee, initial encounter (principal); I48.91 Unspecified atrial fibrillation; Z79.82 Long term (current) use of aspirin; Z79.84 Long term (current) use of oral hypoglycemic drugs; W19.XXXA Unspecified fall, initial encounter
CPT/HCPCS: J7040

== ENCOUNTER 2019-11-18 13:28 | Emergency (ER) | payer MEDICARE, BC ==
[~2019-11-18] VITALS: Ht 188 cm; Wt 100.0 kg
[~2019-11-18 13:28] MED LIST changes: +BACTRIM 400 MG-1 TAB PO; +FERROUS SU325 MG/TAB PO; +ZEBETA 5MG5 MG PO
[2019-11-18 13:35] VITALS: TEMP 98.1
[2019-11-18] MEDS ORDERED: HCTZ12.5TAB PO (14:17)
[2019-11-18] MEDS ORDERED: CEPHALEXIN500 M1 PO (14:28)
[2019-11-18 14:51] VITALS: BP 134/87; PULSE 73
== END 2019-11-18 15:00 | disposition home or self-care (01) ==
LOC: COL.ER 13:28
DX: S50.02XA Contusion of left elbow, initial encounter (principal); Z79.02 Long term (current) use of antithrombotics/antiplatelets; W05.0XXA Fall from non-moving wheelchair, initial encounter; Y92.410 Unspecified street and highway as the place of occurrence of the external cause

== ENCOUNTER 2019-12-12 14:39 | Emergency (ER) | payer MEDICARE, BC ==
[~2019-12-12] VITALS: Ht 188 cm; Wt 100.0 kg
[~2019-12-12 14:39] MED LIST changes: +CEPHALEXIN500 M1 PO; +HCTZ12.5TAB PO
[2019-12-12 14:42] VITALS: TEMP 98
[2019-12-12 15:05] LABS: BASO # 0.1 (0.0-0.2); BASO % 0.6 % (0.0-2.0); EOS # 0.4 (0.0-0.7); EOS % 3.7 % (0-4.0); GRAN # 7.3 (1.4-6.5); GRAN % 74.6 % (42.2-75.2); HEMATOCRIT 38.9 % (42.0-52.0); HEMOGLOBIN 12.8 g/dl (13.5-18.0); LYMPH # 1.3 (1.2-3.4); LYMPH % 13.6 % (20.0-51.0); MEAN CELL VOLUME 93 fl (80.0-100.0); MEAN CORPUSCULAR HEMOGLOBIN 31 pg (27.0-31.0); MEAN CORPUSCULAR HGB CONC 33 g/dl (33.0-37.0); MEAN PLATELET VOLUME 9.7 fl (7.4-10.4); MONO # 0.7 (0.1-0.6); MONO % 6.9 % (1.7-9.3); PLATELET COUNT 231 K/mm3 (130-400); REDCELL DISTRIBUTION WIDTH-CV 13.4 % (11.5-14.5)
[2019-12-12] MEDS ORDERED: ELIQUIS 5MG PO (15:21)
[2019-12-12 15:27] LABS: ALBUMIN 3.8 gm/dL (3.5-5.0); BILIRUBIN,TOTAL 0.9 mg/dL (0.0-1.0); CALCIUM 8.7 mg/dL (8.4-10.2); CREATININE, serum 1.38 (0.66-1.25); TOTAL PROTEIN 7.1 gm/dL (6.4-8.2)
[2019-12-12 15:42] LABS: COLLECTION METHOD CLEAN CATCH
[2019-12-12 15:44] LABS: INR 1.8 (0.8-3.0); PROTHROMBIN TIME 20.2 SECONDS (9.7-12.8)
[2019-12-12 16:02] LABS: BUDDING YEAST Present /hpf; MUCOUS Present /lpf; PH 5 (5-8); SQUAMOUS EPITHELIAL 0-2 /hpf; URINE APPEARANCE Clear; URINE BACTERIA None Seen /hpf; URINE BILIRUBIN Negative (NEGATIVE); URINE BLOOD Negative (NEGATIVE); URINE COLOR Yellow; URINE GLUCOSE 1+ (NEGATIVE); URINE KETONE Negative (NEGATIVE); URINE LEUKOCYTE ESTERASE Negative (NEGATIVE); URINE NITRATE Negative (NEGATIVE); URINE PROTEIN(semi-quant) Negative (NEGATIVE); URINE RBC 0-2 /hpf
[2019-12-12] MEDS ORDERED: ZEBETA10 MG PO (16:08)
[2019-12-12] MEDS ORDERED: PACERONE200 MG PO (16:08)
[2019-12-12] MEDS ORDERED: SYNTHROID0.125 MG/T PO (16:09)
[2019-12-12] MEDS ORDERED: COZAAR100 MG PO (16:10)
[2019-12-12] MEDS ORDERED: MIRTAZAPINE7.5 MG PO (16:11)
[2019-12-12] MEDS ORDERED: SENNA-S 50 MG-81 TAB PO (16:12)
[2019-12-12] MEDS ORDERED: BRILINTA90 MG PO (16:27)
[2019-12-12 16:46] VITALS: BP 145/80; PULSE 59
== END 2019-12-12 16:47 | disposition home or self-care (01) ==
LOC: COL.ER 14:39
PROVIDERS: Emergency Medicine
DX: I12.9 Hypertensive chronic kidney disease with stage 1 through stage 4 chronic kidney disease, or unspecified chronic kidney disease (principal); N18.9 Chronic kidney disease, unspecified; I25.10 Atherosclerotic heart disease of native coronary artery without angina pectoris; R41.0 Disorientation, unspecified; I48.91 Unspecified atrial fibrillation; Z79.01 Long term (current) use of anticoagulants; Z79.84 Long term (current) use of oral hypoglycemic drugs; Z79.890 Hormone replacement therapy

== ENCOUNTER → 2020-10-20 | Outpatient (CLI) | payer MEDICARE, BC ==
[~2020-10-20] MED LIST changes: +BACTRIM DS 8001 TAB PO; +ELIQUIS 5MG PO; +LANTUS SOLOS100 U/ML SQ; +LIPITOR 40MG TA40 MG PO; +MICROZIDE12.5 MG PO; +MILK OF MA400 MG/52 PO; +NEURONTIN100 MG/CAP PO; +NOVOLOG 100U100 U/M1 SQ; +TEKTURNA HCT150/12.5 PO; -ZEBETA 5MG5 MG PO; +ZEBETA10 MG PO
[2020-10-20 10:27] LABS: COLLECTION METHOD CLEAN CATCH
[2020-10-20 10:42] LABS: PH 6 (5-8); SQUAMOUS EPITHELIAL 0-2 /hpf; URINE APPEARANCE Clear; URINE BACTERIA None Seen /hpf; URINE BILIRUBIN Negative (NEGATIVE); URINE BLOOD Negative (NEGATIVE); URINE COLOR Yellow; URINE GLUCOSE Negative (NEGATIVE); URINE KETONE Negative (NEGATIVE); URINE LEUKOCYTE ESTERASE Trace (NEGATIVE); URINE NITRATE Negative (NEGATIVE); URINE PROTEIN(semi-quant) Negative (NEGATIVE); URINE UROBILINOGEN Negative (NEGATIVE)
== END ==
LOC: COL.LAB 06:30
PROVIDERS: Internal Medicine
DX: N39.0 Urinary tract infection, site not specified (principal)

== ENCOUNTER → 2020-10-21 | Outpatient (CLI) | payer OTHER, BC, MEDICARE ==
[2020-10-22 02:31] LABS: MEAN CELL VOLUME 100 fl (80.0-100.0); MEAN CORPUSCULAR HGB CONC 28 g/dl (33.0-37.0); MEAN PLATELET VOLUME 10.4 fl (7.4-10.4); PLATELET COUNT 508 K/mm3 (130-400); RED BLOOD COUNT 2.62 M/mm3 (4.20-5.60); REDCELL DISTRIBUTION WIDTH-CV 18.3 % (11.5-14.5)
[2020-10-22 02:38] LABS: HEMATOCRIT 26.3 % (42.0-52.0); HEMOGLOBIN 7.4 g/dl (13.5-18.0); MEAN CORPUSCULAR HEMOGLOBIN 28 pg (27.0-31.0)
[2020-10-22 03:07] LABS: LYMPHOCYTE 12 % (20.0-51.0); NEUTROPHILS 84 % (42.0-75.2); PLATELET ESTIMATE INCREASED (NORMAL)
[2020-10-22 03:08] LABS: ANISOCYTOSIS 1+; HYPOCHROMIA 3+
[2020-10-22 03:10] LABS: POLYCHROMASIA 1+
[2020-10-22 07:49] LABS: ALBUMIN 3.4 gm/dL (3.5-5.0); CREATININE, serum 1.21 (0.66-1.25); POTASSIUM 5.4 mmol/L (3.4-5.0); TOTAL PROTEIN 6.7 gm/dL (6.4-8.2)
== END ==
LOC: ZCOL.LAB 18:18
PROVIDERS: Internal Medicine
DX: I12.9 Hypertensive chronic kidney disease with stage 1 through stage 4 chronic kidney disease, or unspecified chronic kidney disease (principal); N18.9 Chronic kidney disease, unspecified; E03.4 Atrophy of thyroid (acquired); I48.0 Paroxysmal atrial fibrillation

== ENCOUNTER 2020-10-22 11:16 | Inpatient (IN) | payer MEDICARE, BC ==
[2020-10-22] VITALS (267 sets, daily range): BP systolic 129–130; BP diastolic 80–96; PULSE 96–115; TEMP 98–98.9; O2SAT 87–100
[~2020-10-22] VITALS: Ht 188 cm; Wt 102.4 kg
[~2020-10-22 11:16] MED LIST changes: -BACTRIM DS 8001 TAB PO; -LANTUS SOLOS100 U/ML SQ; -LIPITOR 40MG TA40 MG PO; -MICROZIDE12.5 MG PO; -MILK OF MA400 MG/52 PO; -NEURONTIN100 MG/CAP PO; -NOVOLOG 100U100 U/M1 SQ; -TEKTURNA HCT150/12.5 PO
[2020-10-22] MEDS ORDERED: TYLENOL 325MG325 MG PO (11:55)
[2020-10-22] MEDS ORDERED: MICROZIDE12.5 MG PO (11:59)
[2020-10-22] MEDS ORDERED: GLUCOPHAGE500 MG/TAB PO ×2 (12:05→12:07)
[2020-10-22] MEDS ORDERED: NEURONTIN100 MG/CAP PO (12:10)
[2020-10-22] MEDS ORDERED: NOVOLOG 100U100 U/M1 SQ (12:12)
[2020-10-22] MEDS ORDERED: LIPITOR 40MG TA40 MG PO (12:16)
[2020-10-22] MEDS ORDERED: BACTRIM DS 8001 TAB PO (12:17)
[2020-10-22] MEDS ORDERED: LANTUS SOLOS100 U/ML SQ (12:17)
[2020-10-22] MEDS ORDERED: MILK OF MA400 MG/52 PO (12:18)
[2020-10-22 12:19] LABS: MEAN CORPUSCULAR HGB CONC 30 g/dl (33.0-37.0); RED BLOOD COUNT 2.85 M/mm3 (4.20-5.60); REDCELL DISTRIBUTION WIDTH-CV 18.2 % (11.5-14.5)
[2020-10-22 12:21] LABS: MEAN CELL VOLUME 95 fl (80.0-100.0); MEAN CORPUSCULAR HEMOGLOBIN 28 pg (27.0-31.0); PLATELET COUNT 630 K/mm3 (130-400)
[2020-10-22 12:36] LABS: ANISOCYTOSIS 2+; LYMPHOCYTE 3 % (20.0-51.0); METAMYELOCYTE 1 % (0-0); NEUTROPHILS 94 % (42.0-75.2); PLATELET ESTIMATE INCREASED (NORMAL)
[2020-10-22 12:37] LABS: ALBUMIN 3.4 gm/dL (3.5-5.0); BILIRUBIN,TOTAL 2.1 mg/dL (0.0-1.0); CALCIUM 7.8 mg/dL (8.4-10.2); CREATININE, serum 1.35 (0.66-1.25); HYPOCHROMIA 3+; POTASSIUM 4.7 mmol/L (3.4-5.0); TOTAL PROTEIN 6.8 gm/dL (6.4-8.2)
[2020-10-22 12:47] LABS: MUCOUS Present /lpf; PH 5 (5-8); SQUAMOUS EPITHELIAL None Seen /hpf; URINE APPEARANCE Clear; URINE BACTERIA Occasional /hpf; URINE BILIRUBIN Negative (NEGATIVE); URINE BLOOD 1+ (NEGATIVE); URINE COLOR Yellow; URINE GLUCOSE Negative (NEGATIVE); URINE KETONE Negative (NEGATIVE); URINE LEUKOCYTE ESTERASE Trace (NEGATIVE); URINE NITRATE Negative (NEGATIVE); URINE PROTEIN(semi-quant) Negative (NEGATIVE)
[2020-10-22 12:48] LABS: TROPONIN-I 0.015 ng/mL (0.000-0.035)
[2020-10-22] MEDS ORDERED: TEKTURNA HCT150/12.5 PO (13:59)
[2020-10-22 14:00] LABS: COLLECTION METHOD CATHETER
--- NOTE | 2020-10-22 15:15 | NUR ---
PT ADMITTED FROM ED WITH HIP FX, SEPSIS, AND AMS. PT TRANSFERED TO BED. PT PLACED ON TELE SHOWING AFIB. VSS. PT IS VERY LETHARGIC. PT UNABLE TO ANSWER QUESTIONS AT THIS TIME. PT HAS MICHELLE PICC. PT HAS DRESSING TO LEFT HIP FROM PREVIOUS SURGERY. PT'S SONS BEDSIDE. DR. CAREY AND DR. DAWSON BEDSIDE. WILL CONTINUE TO MONITOR.
--- NOTE | 2020-10-22 19:49 | NUR ---
Received report from CATIA Vallejo. All medications received and all questions answered. Patient resting in bed with 2 sons at bedside. Patient on RA, VSS. Will resume care at this time.
--- NOTE | 2020-10-22 22:19 | NUR ---
Unable to assess suicide risk assessment d/t patient AMS.
[2020-10-23] VITALS (588 sets, daily range): BP systolic 110–148; BP diastolic 66–102; PULSE 77–131; TEMP 97.6–99; O2SAT 81–100
[2020-10-23 04:28] LABS: BASO % 0.1 % (0.0-2.0); EOS % 0.2 % (0-4.0); GRAN % 89.1 % (42.2-75.2); LYMPH # 0.4 (1.2-3.4); LYMPH % 2.9 % (20.0-51.0); MEAN CELL VOLUME 97 fl (80.0-100.0); MEAN CORPUSCULAR HGB CONC 30 g/dl (33.0-37.0); MEAN PLATELET VOLUME 9.5 fl (7.4-10.4); MONO # 0.9 (0.1-0.6); MONO % 6.3 % (1.7-9.3); RED BLOOD COUNT 2.44 M/mm3 (4.20-5.60); REDCELL DISTRIBUTION WIDTH-CV 18.4 % (11.5-14.5)
[2020-10-23 04:37] LABS: HEMATOCRIT 23.6 % (42.0-52.0); MEAN CORPUSCULAR HEMOGLOBIN 29 pg (27.0-31.0); PLATELET COUNT 516 K/mm3 (130-400)
[2020-10-23 04:41] LABS: ALBUMIN 2.9 gm/dL (3.5-5.0); BILIRUBIN,TOTAL 1.4 mg/dL (0.0-1.0); CALCIUM 7.1 mg/dL (8.4-10.2); CREATININE, serum 1.54 (0.66-1.25); POTASSIUM 4.3 mmol/L (3.4-5.0); TOTAL PROTEIN 5.9 gm/dL (6.4-8.2)
--- NOTE | 2020-10-23 05:17 | NUR ---
Patient started on cardizem gtt at 5mg/hr or 5mls/hr per CHRISTIANE Lyles orders.
--- NOTE | 2020-10-23 05:31 | NUR ---
This nurse called and spoke with patients son, Prabhjot BEAVERS, per family request for an update on patients night. Nurse gave update on how patients night went. Son voiced no concerns or complaints and had no other questions at this time.
--- NOTE | 2020-10-23 06:33 | NUR ---
Dr. Melvin at patient bedside. Received orders for bilirubin lab draw
--- NOTE | 2020-10-23 07:30 | NUR ---
REPORT RECIEVED FROM DEVI RN, ALL QUESTIONS ANSWERED. PATIENT FOUND IN BED, EYES OPEN TO VERBAL STIMULI. HEART RATE 110. PAITENT WITH INTERMITTENT MOANING NOTED. SPEECH UNABLE TO UNDERSTAND. INCISION TO LEFT HIP NOTED, BANDAGE IN PLACE. LEFT LEG WITH SWELLING AND EDEMA NOTED. HEART SOUNDS IRREGULAR, TACHYCARDIC, LUNG SOUNDS BILATERAL WHEEZING NOTED, BOWEL SOUNDS AUDIBLE. IV INFUINS INTO RIGHT UPPER ARM PICC WITHOUT DIFFICULTY. IV TO LEFT AC FLUSHED. CALL LIGHT WITHIN REACH, ALL SAFETY MAINTAINED. WILL CONTINUE TO MONITOR.
--- NOTE | 2020-10-23 12:00 | NUR ---
ARIEL SHOEMAKER AT BEDSIDE. DR. CAREY AT BEDSIDE TO UPDATE FAMILY. SON ALEJO CALLED THIS RN FOR UPDATE. ALL QUESTIONS ANSWERED.
--- NOTE | 2020-10-23 13:30 | NUR ---
ATTEMPTING TO REFRESH PATIENT. PATIENT IS CRYING OUT IN PAIN AND HITTING. WILL ADMINISTER PAIN MEDICATION PER MD ORDERS, THEN RESUME.
--- NOTE | 2020-10-23 16:00 | NUR ---
[employer]airspring Vibrator contacted the patient's son, Jose to complete intake. The patient was admitted from post acute rehab at [facility]. Jose reports the patient will not return to [facility]. Jose would like referrals sent to [facility] for post acute rehab. The patient was living at home with [facility] three times [facility] week (M/W/F). The patient's PCP is Dr. Grimes and patient receives medications from [facility]. The patient does not have advanced directives in the EMR. Jose believes they are complete and that Jose Love may have a copy. SW contacted Mr. Love and he reports he does not have a copy of advanced directives. The patient has two sons, Jose and Prabhjot. The patient's a few years ago. Referrals faxed. *Discharge disposition at this time: SNF. Referral sent to [facility] and [facility]. Awaiting screens.
--- NOTE | 2020-10-23 20:18 | NUR ---
Received report from CATIA Cole. All medications verified and all questions answered. Patient resting in bed watching TV with son at bedside. VSS. No concerns or complaints noted at this time. Will resume care at this time.
--- NOTE | 2020-10-23 20:29 | NUR ---
Unable to complete suicide risk assessment screen d/t patients AMS.
[2020-10-23 22:35] LABS: HEMATOCRIT 25.9 % (42.0-52.0); HEMOGLOBIN 7.7 g/dl (13.5-18.0)
--- NOTE | 2020-10-23 23:44 | NUR ---
Patient had small scab about 2cm in length fall of knuckle on pinky on right hand. Bandaid covering open area.
[2020-10-24] VITALS (358 sets, daily range): BP systolic 137–148; BP diastolic 75–86; PULSE 78–90; TEMP 97.7–98.5; O2SAT 85–100
[2020-10-24 04:51] LABS: BASO % 0.1 % (0.0-2.0); EOS # 0.1 (0.0-0.7); EOS % 0.7 % (0-4.0); LYMPH # 0.5 (1.2-3.4); LYMPH % 3.8 % (20.0-51.0); MEAN CELL VOLUME 96 fl (80.0-100.0); MEAN CORPUSCULAR HGB CONC 30 g/dl (33.0-37.0); MEAN PLATELET VOLUME 9.6 fl (7.4-10.4); MONO % 7.2 % (1.7-9.3); PLATELET COUNT 521 K/mm3 (130-400); RED BLOOD COUNT 2.94 M/mm3 (4.20-5.60); REDCELL DISTRIBUTION WIDTH-CV 17.8 % (11.5-14.5)
[2020-10-24 04:52] LABS: HEMATOCRIT 28.3 % (42.0-52.0); HEMOGLOBIN 8.6 g/dl (13.5-18.0); MEAN CORPUSCULAR HEMOGLOBIN 29 pg (27.0-31.0)
[2020-10-24 04:59] LABS: ALBUMIN 2.9 gm/dL (3.5-5.0); BILIRUBIN,TOTAL 1.7 mg/dL (0.0-1.0); CREATININE, serum 1.96 (0.66-1.25); MAGNESIUM 2.9 mg/dL (1.6-2.3); POTASSIUM 4.2 mmol/L (3.4-5.0); TOTAL PROTEIN 6.1 gm/dL (6.4-8.2)
--- NOTE | 2020-10-24 07:00 | NUR ---
REPORT RECIEVED FROM DEVI RN, ALL QUESTIONS ANSWERED. PATIENT FOUND LYING IN BED COMFORTABLE. MORE ORIENTED THEN PREVIOUS SHIFT. ABLE TO FOLLOW SMALL COMMANDS. SOME SPEECH IS UNDERSTOOD. VERBALIZING WANTS OF JUICE. HEART SOUNDS IRREGULAR, LUNG SOUNDS DIMINISHED, BOWEL SOUNDS ACTIVE. SWELLING AND BRUISING NOTED TO LEFT HIP. BANDAGE CLEAN DRY INTACT. CARDIZEM INFUSING INTO RIGHT UPPER ARM PICC WITHOUT DIFFICULTY. VITAL SIGNS REMAIN STABLE. CALL PARSONS WITHIN REACH, WILL CONTINUE TO MONITOR.
--- NOTE | 2020-10-24 09:53 | NUR ---
Initial visit; Patient sleeping, Travel Physical Therapist offered spiritual care to patient's son. Prabhjot remains in Travel Physical Therapist's prayers.
--- NOTE | 2020-10-24 11:15 | NUR ---
REPORT CALLED TO TIFF BARDALES AT [facility]. ALL QUESTIONS ANSWERED. PAITENT TO BE TRANPORTED VIA EMS TO HOSPITAL. PATIENT REFRESED AND CLEAN GOWN PLACED ON. WILL MONITOR.
--- NOTE | 2020-10-24 11:23 | NUR ---
The patient to be transferred to [facility] this day for further care. Chainstitch Zipper Setter coordinating transfer. No other needs at this time.
--- NOTE | 2020-10-24 11:45 | NUR ---
EMS AT BEDSIDE FOR TRANSPORT. REPORT GIVEN. PATIENT TRANSFERED TO [facility]. CARE TO BE MANAGED BY EMS AT THIS TIME.
== END 2020-10-24 11:45 | disposition short-term general hospital (02) | DRG 871 ==
LOC: COL.ER 11:16 → ICU 13:05
PROVIDERS: Emergency Medicine; Physician Assistant; Student in an Organized Health Care Education/Training Program; ADMIT Internal Medicine
PROC: 02HV33Z Insertion of Infusion Device into Superior Vena Cava, Percutaneous Approach (ICD-10-PCS; principal; 2020-10-22)
DX: A41.9 Sepsis, unspecified organism (principal); G93.41 Metabolic encephalopathy; I13.0 Hypertensive heart and chronic kidney disease with heart failure and stage 1 through stage 4 chronic kidney disease, or unspecified chronic kidney disease; I50.30 Unspecified diastolic (congestive) heart failure; K92.2 Gastrointestinal hemorrhage, unspecified; M97.02XA Periprosthetic fracture around internal prosthetic left hip joint, initial encounter; N39.0 Urinary tract infection, site not specified; R65.20 Severe sepsis without septic shock; E78.5 Hyperlipidemia, unspecified; I25.10 Atherosclerotic heart disease of native coronary artery without angina pectoris; I48.91 Unspecified atrial fibrillation; Z79.01 Long term (current) use of anticoagulants; D64.9 Anemia, unspecified; Z86.73 Personal history of transient ischemic attack (TIA), and cerebral infarction without residual deficits; M19.90 Unspecified osteoarthritis, unspecified site; Z20.822 Contact with and (suspected) exposure to COVID-19; M10.9 Gout, unspecified; G47.33 Obstructive sleep apnea (adult) (pediatric); N40.0 Benign prostatic hyperplasia without lower urinary tract symptoms; E11.22 Type 2 diabetes mellitus with diabetic chronic kidney disease; D50.0 Iron deficiency anemia secondary to blood loss (chronic); Z95.818 Presence of other cardiac implants and grafts; E03.9 Hypothyroidism, unspecified; N18.9 Chronic kidney disease, unspecified; E03.4 Atrophy of thyroid (acquired); I48.0 Paroxysmal atrial fibrillation
CPT/HCPCS: 99223-AI; C1751; C9113; J0696; J1170; J1956; J2270; J2543; J3370; J7030; J7040; J7050; P9016

== ENCOUNTER → 2020-10-22 | Outpatient (CLI) | payer MEDICARE, BC | LOC: ZCOL.LAB 12:22 | DX: I12.9 Hypertensive chronic kidney disease with stage 1 through stage 4 chronic kidney disease, or unspecified chronic kidney disease (principal); N18.9 Chronic kidney disease, unspecified ==